=== PATIENT | female | born 1940 | race African-American/Black ===

== ENCOUNTER 2019-03-15 14:32 | Inpatient (IN) ==
[2019-03-15] MEDS ORDERED: LEVOFLOXACIN 750 MG TABLET PO STA (16:22)
[2019-03-15] MEDS ORDERED: methylPREDNISolone SOD SUC 125 MG/2 ML VIAL IV STA (16:22)
[2019-03-15] MEDS ORDERED: ALBUTEROL NEB SOLN 5 MG/ML 20 ML/BOTTLE CONT NEB STA (16:22)
[2019-03-15 17:21] LABS: Apearance,Urine CLOUDY (Clear); Bilirubin,Urine Negative (Negative); Blood, Urine Moderate mg/dL (Negative); Glucose,Urine (UA) Negative (Negative); Ketones,Urine Negative (Negative); Mucus,Urine Occasional /LPF (Occasional); Nitrite,Urine Negative (Negative); Protein,Urine 100 MG/DL; RBC,Urine 26 /HPF (0-4); Squamous Epithelial Cell,Urine Occasional /HPF (0-10); Urine Color Yellow (Yellow); Urine Specific Gravity 1.016 (1.001-1.035); Urine Urobilinogen < 2.0 EU/DL (0.2-1.0); WBC,Urine 222 /HPF (0-6)
[2019-03-15 17:34] LABS: Basophils % 0.4 % (0.0-0.8); Eosinophils # 0.2 10*3/uL (0.0-0.87); Eosinophils % 1.4 % (0.00-10.9); Hematocrit 36.4 VOL% (35.7-47.0); Hemoglobin 10.8 GM/DL (12.0-16.0); Immature Granulocytes % 0.5 %; Immature Granulocytes Absolute 0.06 #; Lymphocytes # 3.2 10*3/uL (1.4-4.0); Lymphocytes % 28.2 % (21.3-54.2); Mean Corpuscular HGB Conc 29.7 GM/DL (32-36); Mean Corpuscular Volume 91.2 FL (87-102); Mean Platelet Volume 12.4 FL (9.6-12.0); Monocytes % 11.5 % (1.7-12.7); Platelet Count 107 T/CUMM (130-400); Red Blood Count 3.99 MC/CUMM (3.8-5.5); White Blood Count 11.2 T/CUMM (4-12)
[2019-03-15 17:48] LABS: Alanine Aminotransferase 33 U/L (13-56); Alkaline Phosphatase 94 U/L (45-117); Aspartate Amino Transferase 28 U/L (0-37); Blood Urea Nitrogen 32 MG/DL (7-18); Calcium 9.6 MG/DL (8.5-10.1); Glucose 195 MG/DL (74-106); Osmolality,Calculated 286.7 MOS/KG (273-304); Total Protein 6.6 G/DL (6.4-8.3); Troponin I < 0.015 NG/ML (0.00-0.045)
[2019-03-15] MEDS ORDERED: DEXTROSE 50% 25 GM/50 ML VIAL IV PRN ×2 (18:07→18:10)
[2019-03-15] MEDS ORDERED: GLUCAGON 1 MG VIAL IM PRN ×2 (18:07→18:10)
[2019-03-15] MEDS ORDERED: guaiFENesin/DM ER 600-30 MG TABLET PO PRN (18:07)
[2019-03-15] MEDS ORDERED: ZALEPLON 5 MG CAPSULE PO PRN (18:07)
[2019-03-15] MEDS ORDERED: ACETAMINOPHEN 325 MG TABLET PO PRN (18:07)
[2019-03-15 18:18] LABS: Polychromasia Few
[2019-03-15 18:19] LABS: Anisocytosis Slight; Hypochromasia 1+; Microcytosis Slight
[2019-03-15 18:20] LABS: Platelet Estimate Decreased
[2019-03-15] MEDS ORDERED: CALCIUM ACETATE 667 MG CAPSULE PO SCH (18:30)
[2019-03-15] MEDS: CALCIUM ACETATE 667 MG CAPSULE PO SCH (21:56)
[2019-03-15] MEDS: HEPARIN 5,000 UNIT/1 ML VIAL SUBCUT SCH (21:56)
[2019-03-15] MEDS: BRIMONIDINE 0.2% OPH SOLN 5 ML BOTTLE BOTH EYES SCH (21:58)
[2019-03-16] MEDS: MEMANTINE 5 MG TABLET PO SCH ×3 (00:04→21:45)
[2019-03-16] MEDS: GABAPENTIN 300 MG CAPSULE PO SCH ×3 (00:04→21:45)
[2019-03-16] MEDS: ATORVASTATIN 40 MG TABLET PO SCH ×2 (00:04→21:45)
[2019-03-16] MEDS: ALBUTEROL 2.5 MG/3 ML NEB RESP TX SCH ×5 (00:45→19:25)
[2019-03-16] MEDS: PANTOPRAZOLE 20 MG TABLET PO SCH ×3 (00:57→23:59)
[2019-03-16] MEDS: HEPARIN 5,000 UNIT/1 ML VIAL SUBCUT SCH ×3 (04:32→22:23)
[2019-03-16 05:36] LABS: Basophils % 0.1 % (0.0-0.8); Hematocrit 33.7 VOL% (35.7-47.0); Immature Granulocytes % 0.4 %; Immature Granulocytes Absolute 0.03 #; Lymphocytes # 0.5 10*3/uL (1.4-4.0); Lymphocytes % 5.9 % (21.3-54.2); Mean Corpuscular HGB Conc 29.7 GM/DL (32-36); Mean Corpuscular Volume 90.3 FL (87-102); Mean Platelet Volume 12.8 FL (9.6-12.0); Monocytes % 3.1 % (1.7-12.7); Neutrophils % 90.5 % (38.7-73.9); Platelet Count 116 T/CUMM (130-400); Red Blood Count 3.73 MC/CUMM (3.8-5.5); Red Cell Distribution Width 15.1 % (9.3-17.3)
[2019-03-16 05:48] LABS: Albumin 2.9 G/DL (3.4-5.0); Bilirubin,Total 0.7 MG/DL (0.2-1.0); Calcium 9.4 MG/DL (8.5-10.1); Osmolality,Calculated 301.4 MOS/KG (273-304); Risk Ratio 3.63; Total Protein 6.7 G/DL (6.4-8.3); VLDL CHOLESTEROL 15.8 MG/DL
[2019-03-16] MEDS: CALCIUM ACETATE 667 MG CAPSULE PO SCH ×3 (06:05→18:25)
[2019-03-16] MEDS: LACTULOSE 20 GM/30 ML UDCUP PO SCH ×2 (06:05→17:27)
[2019-03-16] MEDS: FLUoxetine 20 MG CAPSULE PO SCH (06:05)
[2019-03-16] MEDS: GLIMEPIRIDE 4 MG TABLET PO SCH (06:06)
[2019-03-16] MEDS: MULTIVITAMIN (CENTRUM) TABLET PO SCH (09:46)
[2019-03-16] MEDS: POLYETHYLENE GLYCOL POWDER 17 GM PACK PO SCH (09:46)
[2019-03-16] MEDS: CETIRIZINE 10 MG TABLET PO SCH (09:46)
[2019-03-16] MEDS: ASPIRIN EC 81 MG TABLET PO SCH (09:47)
[2019-03-16] MEDS: CYANOCOBALAMIN 500 MCG TABLET PO SCH (09:47)
[2019-03-16] MEDS: BRIMONIDINE 0.2% OPH SOLN 5 ML BOTTLE BOTH EYES SCH ×2 (09:48→19:47)
[2019-03-16] MEDS: LATANOPROST 0.005% OPH SOLN 2.5 ML BOTTLE BOTH EYES SCH (09:55)
[2019-03-17] MEDS: ALBUTEROL 2.5 MG/3 ML NEB RESP TX SCH ×3 (00:28→13:28)
[2019-03-17] MEDS: HEPARIN 5,000 UNIT/1 ML VIAL SUBCUT SCH ×2 (04:14→14:08)
[2019-03-17 05:55] LABS: Basophils % 0.3 % (0.0-0.8); Eosinophils # 0.2 10*3/uL (0.0-0.87); Eosinophils % 2.7 % (0.00-10.9); Hematocrit 32.2 VOL% (35.7-47.0); Hemoglobin 9.7 GM/DL (12.0-16.0); Immature Granulocytes % 0.2 %; Immature Granulocytes Absolute 0.01 #; Lymphocytes # 1.3 10*3/uL (1.4-4.0); Lymphocytes % 21.3 % (21.3-54.2); Mean Corpuscular HGB Conc 30.1 GM/DL (32-36); Mean Corpuscular Volume 90.2 FL (87-102); Mean Platelet Volume 11.9 FL (9.6-12.0); Monocytes % 13.1 % (1.7-12.7); Neutrophils % 62.4 % (38.7-73.9); Platelet Count 103 T/CUMM (130-400); Red Blood Count 3.57 MC/CUMM (3.8-5.5); Red Cell Distribution Width 14.9 % (9.3-17.3)
[2019-03-17] MEDS: GLIMEPIRIDE 4 MG TABLET PO SCH (06:06)
[2019-03-17] MEDS: CALCIUM ACETATE 667 MG CAPSULE PO SCH ×3 (06:06→18:33)
[2019-03-17] MEDS: FLUoxetine 20 MG CAPSULE PO SCH (06:06)
[2019-03-17] MEDS: ASPIRIN EC 81 MG TABLET PO SCH (08:16)
[2019-03-17] MEDS: CYANOCOBALAMIN 500 MCG TABLET PO SCH (08:16)
[2019-03-17] MEDS: MEMANTINE 5 MG TABLET PO SCH (08:16)
[2019-03-17] MEDS: POLYETHYLENE GLYCOL POWDER 17 GM PACK PO SCH (08:16)
[2019-03-17] MEDS: CETIRIZINE 10 MG TABLET PO SCH (08:16)
[2019-03-17] MEDS: MULTIVITAMIN (CENTRUM) TABLET PO SCH (08:16)
[2019-03-17] MEDS: GABAPENTIN 300 MG CAPSULE PO SCH (08:17)
[2019-03-17] MEDS: BRIMONIDINE 0.2% OPH SOLN 5 ML BOTTLE BOTH EYES SCH (08:17)
[2019-03-17] MEDS: LATANOPROST 0.005% OPH SOLN 2.5 ML BOTTLE BOTH EYES SCH (08:18)
[2019-03-17] MEDS ORDERED: LIDOCAINE/PRILOCAINE CREAM 5 GM TUBE TOP SCH (09:00)
[2019-03-17] MEDS ORDERED: LEVOFLOXACIN INJ 500 MG in PREMIX 1 EACH IV SCH (09:00)
[2019-03-17] MEDS ORDERED: NITROGLYCERIN 0.4 MG/HR PATCH TRANSDERM SCH (09:00)
[2019-03-17 16:31] VITALS: BP 119/61
== END 2019-03-17 19:11 | DRG 689 ==
LOC: EDUNIT# → EDBD → N.ED 14:32 → N.EDINP 18:07 → N.5E 19:14
PROVIDERS: ADMIT Internal Medicine; ATTEND Internal Medicine

== ENCOUNTER 2019-06-25 11:36 | Inpatient (IN) ==
[2019-06-25] MEDS ORDERED: VANCOMYCIN INJ 1,000 MG in SODIUM CHLORIDE 0.9% 250 ML IV STA (12:11)
[2019-06-25] MEDS ORDERED: GLUCAGON 1 MG VIAL IM PRN (12:41)
[2019-06-25] MEDS ORDERED: DEXTROSE 50% 25 GM/50 ML VIAL IV PRN ×2 (12:41→15:40)
[2019-06-25 13:15] LABS: Basophils % 0.3 % (0.0-0.8); Eosinophils # 0.1 10*3/uL (0.0-0.87); Eosinophils % 0.7 % (0.00-10.9); Hematocrit 32.9 VOL% (35.7-47.0); Hemoglobin 9.9 GM/DL (12.0-16.0); Immature Granulocytes % 0.4 %; Immature Granulocytes Absolute 0.03 #; Lymphocytes # 1.4 10*3/uL (1.4-4.0); Mean Corpuscular HGB Conc 30.1 GM/DL (32-36); Mean Corpuscular Volume 88.4 FL (87-102); Mean Platelet Volume 11.8 FL (9.6-12.0); Monocytes % 13.9 % (1.7-12.7); Neutrophils % 66.7 % (38.7-73.9); Platelet Count 114 T/CUMM (130-400); Red Blood Count 3.72 MC/CUMM (3.8-5.5); Red Cell Distribution Width 16.2 % (9.3-17.3); White Blood Count 7.6 T/CUMM (4-12)
[2019-06-25] MEDS ORDERED: DEXTROSE 50% 25 GM/50 ML SYRINGE IV ONE (13:16)
[2019-06-25 13:30] LABS: INR 0.9; PT Patient Result 10.3 SECS (9.6-12.2); Partial Thromboplastin Time 28.3 SECS (20.8-36.0)
[2019-06-25 13:35] LABS: Alanine Aminotransferase 14 U/L (13-56); Albumin 2.9 G/DL (3.4-5.0); Alkaline Phosphatase 74 U/L (45-117); Aspartate Amino Transferase 16 U/L (0-37); Blood Urea Nitrogen 30 MG/DL (7-18); Calcium 9.3 MG/DL (8.5-10.1); Glucose 102 MG/DL (74-106); Osmolality,Calculated 286.3 MOS/KG (273-304); Total Protein 6.4 G/DL (6.4-8.3); Troponin I < 0.015 NG/ML (0.00-0.045)
[2019-06-25] MEDS ORDERED: guaiFENesin/DM ER 600-30 MG TABLET PO PRN (15:37)
[2019-06-25] MEDS ORDERED: ONDANSETRON 4 MG/2 ML VIAL IV PRN (15:37)
[2019-06-25] MEDS ORDERED: diphenhydrAMINE CAP 25 MG CAPSULE PO PRN (15:37)
[2019-06-25] MEDS ORDERED: ACETAMINOPHEN 325 MG TABLET PO PRN (15:37)
[2019-06-25] MEDS ORDERED: NITROGLYCERIN SL 0.4 MG TABLET SL PRN (15:40)
[2019-06-25] MEDS ORDERED: ONDANSETRON 4 MG TABLET PO PRN (15:40)
[2019-06-25] MEDS ORDERED: LACTULOSE 20 GM/30 ML UDCUP PO PRN (15:40)
[2019-06-25] MEDS ORDERED: BENZONATATE 100 MG CAPSULE PO PRN (15:40)
[2019-06-25] MEDS ORDERED: guaiFENesin 200 MG/10 ML UDCUP PO PRN (15:40)
[2019-06-25 16:05] LABS: Risk Ratio 2.75; VLDL CHOLESTEROL 20.2 MG/DL
[2019-06-25] MEDS: CLINDAMYCIN INJ 600 MG in PREMIX 1 EACH IV SCH (16:35)
[2019-06-25] MEDS ORDERED: CRANBERRY 500 MG PO SCH (17:00)
[2019-06-25] MEDS: CALCIUM ACETATE 667 MG CAPSULE PO SCH (17:41)
[2019-06-25] MEDS: HEPARIN 5,000 UNIT/1 ML VIAL SUBCUT SCH (17:56)
[2019-06-25] MEDS: MEMANTINE 10 MG TABLET PO SCH (20:20)
[2019-06-25] MEDS: BRIMONIDINE 0.2% OPH SOLN 5 ML BOTTLE LEFT EYE SCH (20:20)
[2019-06-25] MEDS: ATORVASTATIN 40 MG TABLET PO SCH (20:20)
[2019-06-25] MEDS: GABAPENTIN 600 MG TABLET PO SCH (20:20)
[2019-06-26] MEDS ORDERED: PANTOPRAZOLE 40 MG TABLET PO SCH
[2019-06-26] MEDS: HEPARIN 5,000 UNIT/1 ML VIAL SUBCUT SCH ×3 (01:13→18:56)
[2019-06-26] MEDS: CLINDAMYCIN INJ 600 MG in PREMIX 1 EACH IV SCH ×3 (01:13→18:57)
[2019-06-26 04:57] LABS: Basophils % 0.2 % (0.0-0.8); Eosinophils # 0.1 10*3/uL (0.0-0.87); Eosinophils % 1.7 % (0.00-10.9); Hematocrit 31.1 VOL% (35.7-47.0); Hemoglobin 9.5 GM/DL (12.0-16.0); Immature Granulocytes % 0.3 %; Immature Granulocytes Absolute 0.02 #; Lymphocytes # 1.4 10*3/uL (1.4-4.0); Lymphocytes % 21.2 % (21.3-54.2); Mean Corpuscular HGB Conc 30.5 GM/DL (32-36); Mean Corpuscular Volume 87.4 FL (87-102); Mean Platelet Volume 12.3 FL (9.6-12.0); Monocytes % 16.1 % (1.7-12.7); Neutrophils % 60.5 % (38.7-73.9); Platelet Count 103 T/CUMM (130-400); Red Blood Count 3.56 MC/CUMM (3.8-5.5); White Blood Count 6.5 T/CUMM (4-12)
[2019-06-26 05:21] LABS: Eosinophils 1 % (0-10); Hypochromasia 1+; Lymphocytes 25 % (20-55); Ovalocytes Slight; Platelet Estimate Decreased; Segmented Neutrophils 59 % (50-85); Total Cells Counted 100
[2019-06-26 05:28] LABS: Albumin 2.8 G/DL (3.4-5.0); Bilirubin,Total 0.5 MG/DL (0.2-1.0); Calcium 8.9 MG/DL (8.5-10.1); Osmolality,Calculated 284.4 MOS/KG (273-304); Thyroid Stimulating Hormone 2.69 uIU/ml (0.358-3.74)
[2019-06-26] MEDS: CALCIUM ACETATE 667 MG CAPSULE PO SCH ×3 (06:18→21:58)
[2019-06-26] MEDS: ASPIRIN EC 81 MG TABLET PO SCH (08:18)
[2019-06-26] MEDS: MULTIVITAMIN (CENTRUM) TABLET PO SCH (08:19)
[2019-06-26] MEDS: GABAPENTIN 600 MG TABLET PO SCH ×2 (08:19→21:58)
[2019-06-26] MEDS: CYANOCOBALAMIN 500 MCG TABLET PO SCH (08:19)
[2019-06-26] MEDS: GLIMEPIRIDE 4 MG TABLET PO SCH (08:20)
[2019-06-26] MEDS: PANTOPRAZOLE 40 MG TABLET PO SCH (08:20)
[2019-06-26] MEDS: FLUoxetine 20 MG CAPSULE PO SCH (08:20)
[2019-06-26] MEDS: MEMANTINE 10 MG TABLET PO SCH ×2 (08:20→21:58)
[2019-06-26] MEDS: POLYETHYLENE GLYCOL POWDER 17 GM PACK PO SCH (08:21)
[2019-06-26] MEDS: LATANOPROST 0.005% OPH SOLN 2.5 ML BOTTLE BOTH EYES SCH (08:26)
[2019-06-26] MEDS: BRIMONIDINE 0.2% OPH SOLN 5 ML BOTTLE LEFT EYE SCH ×2 (08:26→21:58)
[2019-06-26] MEDS ORDERED: LIDOCAINE 1% 20 ML VIAL ONE (12:14)
[2019-06-26] MEDS ORDERED: BUPIVACAINE 0.25% /EPI 10 ML VIAL ONE (12:14)
[2019-06-26] MEDS ORDERED: HEPARIN 5,000 UNIT/1 ML VIAL ONE (12:15)
[2019-06-26] MEDS ORDERED: PROPOFOL 200 MG/20 ML VIAL IV ONE (16:28)
[2019-06-26] MEDS ORDERED: MIDAZOLAM 2 MG/2 ML VIAL ONE (16:29)
[2019-06-26] MEDS ORDERED: SODIUM CHLORIDE 0.9% 250 ML IV ONE (16:29)
[2019-06-26] MEDS ORDERED: SODIUM CHLORIDE 0.9% 100 ML IV ONE (16:29)
[2019-06-26] MEDS ORDERED: LABETALOL 20 MG/4 ML SYRINGE IV ONE ×2 (17:33→17:35)
[2019-06-26] MEDS: ATORVASTATIN 40 MG TABLET PO SCH (21:58)
[2019-06-27] MEDS: CLINDAMYCIN INJ 600 MG in PREMIX 1 EACH IV SCH ×3 (00:09→17:13)
[2019-06-27] MEDS: HEPARIN 5,000 UNIT/1 ML VIAL SUBCUT SCH ×3 (00:09→17:18)
[2019-06-27 05:36] LABS: Basophils % 0.3 % (0.0-0.8); Eosinophils # 0.1 10*3/uL (0.0-0.87); Eosinophils % 1.5 % (0.00-10.9); Hematocrit 33.6 VOL% (35.7-47.0); Hemoglobin 10.3 GM/DL (12.0-16.0); Immature Granulocytes % 0.3 %; Immature Granulocytes Absolute 0.02 #; Lymphocytes # 1.6 10*3/uL (1.4-4.0); Lymphocytes % 22.5 % (21.3-54.2); Mean Corpuscular HGB Conc 30.7 GM/DL (32-36); Mean Corpuscular Volume 86.6 FL (87-102); Monocytes % 13.8 % (1.7-12.7); Neutrophils % 61.6 % (38.7-73.9); Platelet Count 108 T/CUMM (130-400); Red Blood Count 3.88 MC/CUMM (3.8-5.5); Red Cell Distribution Width 16.1 % (9.3-17.3); White Blood Count 7.2 T/CUMM (4-12)
[2019-06-27 05:55] LABS: Bilirubin,Total 0.4 MG/DL (0.2-1.0); Calcium 9.1 MG/DL (8.5-10.1); Osmolality,Calculated 281.8 MOS/KG (273-304); Total Protein 6.6 G/DL (6.4-8.3)
[2019-06-27] MEDS: GLIMEPIRIDE 4 MG TABLET PO SCH (06:23)
[2019-06-27] MEDS: POLYETHYLENE GLYCOL POWDER 17 GM PACK PO SCH (08:46)
[2019-06-27] MEDS: ASPIRIN EC 81 MG TABLET PO SCH (08:47)
[2019-06-27] MEDS: GABAPENTIN 600 MG TABLET PO SCH ×2 (08:47→21:51)
[2019-06-27] MEDS: PANTOPRAZOLE 40 MG TABLET PO SCH (08:49)
[2019-06-27] MEDS: LACTULOSE 20 GM/30 ML UDCUP PO SCH ×2 (08:49→21:51)
[2019-06-27] MEDS: CALCIUM ACETATE 667 MG CAPSULE PO SCH ×3 (08:49→16:12)
[2019-06-27] MEDS: CYANOCOBALAMIN 500 MCG TABLET PO SCH (08:49)
[2019-06-27] MEDS: MULTIVITAMIN (CENTRUM) TABLET PO SCH (08:49)
[2019-06-27] MEDS: FLUoxetine 20 MG CAPSULE PO SCH (08:49)
[2019-06-27] MEDS: MEMANTINE 10 MG TABLET PO SCH ×2 (08:49→21:51)
[2019-06-27] MEDS: LATANOPROST 0.005% OPH SOLN 2.5 ML BOTTLE BOTH EYES SCH (08:56)
[2019-06-27] MEDS: BRIMONIDINE 0.2% OPH SOLN 5 ML BOTTLE LEFT EYE SCH (08:56)
[2019-06-27] MEDS: NITROGLYCERIN 0.4 MG/HR PATCH TRANSDERM SCH (09:36)
[2019-06-27] MEDS ORDERED: hydrALAZINE 20 MG/1 ML VIAL IV ONE (10:03)
[2019-06-27] MEDS ORDERED: HEPARIN 10,000 UNIT/10 ML VIAL IV PRN (12:41)
[2019-06-27] MEDS ORDERED: VANCOMYCIN INJ 1,000 MG in SODIUM CHLORIDE 0.9% 250 ML IV ONE ×2 (13:00→14:00)
[2019-06-27] MEDS: ATORVASTATIN 40 MG TABLET PO SCH (21:51)
[2019-06-28] MEDS: BRIMONIDINE 0.2% OPH SOLN 5 ML BOTTLE LEFT EYE SCH ×3 (01:09→20:31)
[2019-06-28] MEDS: CLINDAMYCIN INJ 600 MG in PREMIX 1 EACH IV SCH ×3 (01:12→17:32)
[2019-06-28] MEDS: HEPARIN 5,000 UNIT/1 ML VIAL SUBCUT SCH ×3 (01:15→17:17)
[2019-06-28 05:53] LABS: Basophils % 0.3 % (0.0-0.8); Eosinophils % 0.6 % (0.00-10.9); Hematocrit 29.9 VOL% (35.7-47.0); Hemoglobin 9.5 GM/DL (12.0-16.0); Immature Granulocytes % 0.5 %; Immature Granulocytes Absolute 0.03 #; Lymphocytes # 1.4 10*3/uL (1.4-4.0); Lymphocytes % 22.2 % (21.3-54.2); Mean Corpuscular HGB Conc 31.8 GM/DL (32-36); Mean Corpuscular Volume 85.9 FL (87-102); Mean Platelet Volume 11.8 FL (9.6-12.0); Monocytes % 12.6 % (1.7-12.7); Neutrophils % 63.8 % (38.7-73.9); Platelet Count 101 T/CUMM (130-400); Red Blood Count 3.48 MC/CUMM (3.8-5.5); Red Cell Distribution Width 15.9 % (9.3-17.3); White Blood Count 6.5 T/CUMM (4-12)
[2019-06-28] MEDS: CALCIUM ACETATE 667 MG CAPSULE PO SCH ×3 (06:08→17:17)
[2019-06-28 06:15] LABS: Albumin 2.6 G/DL (3.4-5.0); Bilirubin,Total 0.4 MG/DL (0.2-1.0); Calcium 8.6 MG/DL (8.5-10.1); Osmolality,Calculated 284.4 MOS/KG (273-304); Total Protein 6.2 G/DL (6.4-8.3)
[2019-06-28] MEDS: ASPIRIN EC 81 MG TABLET PO SCH (12:42)
[2019-06-28] MEDS: PANTOPRAZOLE 40 MG TABLET PO SCH (12:43)
[2019-06-28] MEDS: CYANOCOBALAMIN 500 MCG TABLET PO SCH (12:43)
[2019-06-28] MEDS: GABAPENTIN 600 MG TABLET PO SCH ×2 (12:43→20:26)
[2019-06-28] MEDS: MULTIVITAMIN (CENTRUM) TABLET PO SCH (12:43)
[2019-06-28] MEDS: FLUoxetine 20 MG CAPSULE PO SCH (12:43)
[2019-06-28] MEDS: MEMANTINE 10 MG TABLET PO SCH ×2 (12:44→20:31)
[2019-06-28] MEDS: POLYETHYLENE GLYCOL POWDER 17 GM PACK PO SCH (15:15)
[2019-06-28] MEDS: LATANOPROST 0.005% OPH SOLN 2.5 ML BOTTLE BOTH EYES SCH (17:27)
[2019-06-28] MEDS: ATORVASTATIN 40 MG TABLET PO SCH (20:31)
[2019-06-29] MEDS: CLINDAMYCIN INJ 600 MG in PREMIX 1 EACH IV SCH (00:42)
[2019-06-29] MEDS: HEPARIN 5,000 UNIT/1 ML VIAL SUBCUT SCH ×3 (00:42→17:00)
[2019-06-29 05:04] LABS: Basophils % 0.4 % (0.0-0.8); Eosinophils # 0.1 10*3/uL (0.0-0.87); Eosinophils % 1.4 % (0.00-10.9); Hematocrit 30.8 VOL% (35.7-47.0); Hemoglobin 9.5 GM/DL (12.0-16.0); Immature Granulocytes % 0.4 %; Immature Granulocytes Absolute 0.03 #; Lymphocytes # 2.1 10*3/uL (1.4-4.0); Lymphocytes % 30.1 % (21.3-54.2); Mean Corpuscular HGB Conc 30.8 GM/DL (32-36); Mean Corpuscular Volume 86.3 FL (87-102); Mean Platelet Volume 12.5 FL (9.6-12.0); Monocytes % 12.1 % (1.7-12.7); Neutrophils % 55.6 % (38.7-73.9); Platelet Count 127 T/CUMM (130-400); Red Blood Count 3.57 MC/CUMM (3.8-5.5); Red Cell Distribution Width 15.9 % (9.3-17.3); White Blood Count 7.1 T/CUMM (4-12)
[2019-06-29 05:27] LABS: Albumin 2.9 G/DL (3.4-5.0); Calcium 8.9 MG/DL (8.5-10.1); Osmolality,Calculated 276.8 MOS/KG (273-304); Total Protein 6.7 G/DL (6.4-8.3)
[2019-06-29] MEDS: CALCIUM ACETATE 667 MG CAPSULE PO SCH ×3 (06:16→17:00)
[2019-06-29] MEDS: MEMANTINE 10 MG TABLET PO SCH (08:30)
[2019-06-29] MEDS: BRIMONIDINE 0.2% OPH SOLN 5 ML BOTTLE LEFT EYE SCH (08:30)
[2019-06-29] MEDS: LATANOPROST 0.005% OPH SOLN 2.5 ML BOTTLE BOTH EYES SCH (08:31)
[2019-06-29] MEDS: CYANOCOBALAMIN 500 MCG TABLET PO SCH (08:32)
[2019-06-29] MEDS: PANTOPRAZOLE 40 MG TABLET PO SCH (08:32)
[2019-06-29] MEDS: ASPIRIN EC 81 MG TABLET PO SCH (08:32)
[2019-06-29] MEDS: GABAPENTIN 600 MG TABLET PO SCH (08:32)
[2019-06-29] MEDS: MULTIVITAMIN (CENTRUM) TABLET PO SCH (08:32)
[2019-06-29] MEDS: FLUoxetine 20 MG CAPSULE PO SCH (08:32)
[2019-06-29] MEDS: LACTULOSE 20 GM/30 ML UDCUP PO SCH (08:33)
[2019-06-29] MEDS: POLYETHYLENE GLYCOL POWDER 17 GM PACK PO SCH (08:33)
[2019-06-29] MEDS: NITROGLYCERIN 0.4 MG/HR PATCH TRANSDERM SCH (08:43)
[2019-06-29] MEDS: CLINDAMYCIN 300 MG CAPSULE PO SCH ×2 (09:28→17:00)
[2019-06-29 15:59] VITALS: BP 163/76
== END 2019-06-29 18:20 | DRG 252 ==
LOC: EDUNIT# → EDBD → N.ED 11:36 → N.EDINP 15:37 → N.2E 16:03
PROVIDERS: ADMIT Internal Medicine; ATTEND Internal Medicine

== ENCOUNTER 2019-08-07 14:34 | Observation (INO) ==
[2019-08-07 15:19] LABS: Basophils % 0.5 % (0.0-0.8); Eosinophils # 0.1 10*3/uL (0.0-0.87); Eosinophils % 2.3 % (0.00-10.9); Hematocrit 35.4 VOL% (35.7-47.0); Hemoglobin 10.9 GM/DL (12.0-16.0); Immature Granulocytes % 0.3 %; Immature Granulocytes Absolute 0.02 #; Lymphocytes # 1.8 10*3/uL (1.4-4.0); Lymphocytes % 29.3 % (21.3-54.2); Mean Corpuscular HGB Conc 30.8 GM/DL (32-36); Mean Corpuscular Volume 88.3 FL (87-102); Monocytes % 10.5 % (1.7-12.7); Neutrophils % 57.1 % (38.7-73.9); Platelet Count 157 T/CUMM (130-400); Red Blood Count 4.01 MC/CUMM (3.8-5.5); Red Cell Distribution Width 15.9 % (9.3-17.3); White Blood Count 6.1 T/CUMM (4-12)
[2019-08-07 15:23] LABS: PT Patient Result 10.7 SECS (9.6-12.2)
[2019-08-07 15:32] LABS: Alanine Aminotransferase 21 U/L (13-56); Albumin 3.3 G/DL (3.4-5.0); Alkaline Phosphatase 81 U/L (45-117); Aspartate Amino Transferase 24 U/L (0-37); Blood Urea Nitrogen 28 MG/DL (7-18); Calcium 9.2 MG/DL (8.5-10.1); Estimated Glom Filtration Rate 9 ML/MIN; Glucose 65 MG/DL (74-106); Osmolality,Calculated 289.8 MOS/KG (273-304); Troponin I < 0.015 NG/ML (0.00-0.045)
[2019-08-07] MEDS ORDERED: DEXTROSE 50% 25 GM/50 ML SYRINGE IV ONE (18:20)
[2019-08-07] MEDS ORDERED: DEXTROSE 50% 25 GM/50 ML VIAL IV STA (18:26)
[2019-08-07] MEDS ORDERED: ONDANSETRON 4 MG TABLET PO PRN (20:27)
[2019-08-07] MEDS ORDERED: NITROGLYCERIN SL 0.4 MG TABLET SL PRN (20:27)
[2019-08-07] MEDS ORDERED: LACTULOSE 20 GM/30 ML UDCUP PO PRN (20:27)
[2019-08-07] MEDS ORDERED: DEXTROSE 10% 250 ML BAG IV PRN (20:32)
[2019-08-07] MEDS ORDERED: DOCUSATE SODIUM 100 MG CAPSULE PO PRN (20:32)
[2019-08-07] MEDS ORDERED: GLUCAGON 1 MG VIAL IM PRN (20:32)
[2019-08-07] MEDS ORDERED: ACETAMINOPHEN 325 MG TABLET PO PRN (20:32)
[2019-08-07] MEDS: BRIMONIDINE 0.2% OPH SOLN 5 ML BOTTLE LEFT EYE SCH (21:53)
[2019-08-07] MEDS: TICAGRELOR 90 MG TABLET PO SCH (21:53)
[2019-08-07] MEDS: MEMANTINE 10 MG TABLET PO SCH (21:53)
[2019-08-08 06:41] LABS: Calcium 8.3 MG/DL (8.5-10.1)
[2019-08-08] MEDS: CALCIUM ACETATE 667 MG CAPSULE PO SCH ×2 (08:30→12:25)
[2019-08-08] MEDS: BRIMONIDINE 0.2% OPH SOLN 5 ML BOTTLE LEFT EYE SCH (08:30)
[2019-08-08] MEDS: TICAGRELOR 90 MG TABLET PO SCH (08:30)
[2019-08-08] MEDS: MEMANTINE 10 MG TABLET PO SCH (08:30)
[2019-08-08] MEDS ORDERED: POLYETHYLENE GLYCOL POWDER 17 GM PACK PO SCH (09:00)
[2019-08-08] MEDS ORDERED: ASPIRIN EC 81 MG TABLET PO SCH (09:00)
[2019-08-08] MEDS ORDERED: LATANOPROST 0.005% OPH SOLN 2.5 ML BOTTLE BOTH EYES SCH (09:00)
[2019-08-08] MEDS ORDERED: FLUoxetine 20 MG CAPSULE PO SCH (09:00)
[2019-08-08] MEDS ORDERED: GABAPENTIN 600 MG TABLET PO SCH (09:00)
[2019-08-08] MEDS ORDERED: amLODIPine 5 MG TABLET PO SCH (11:00)
[2019-08-08 13:48] VITALS: BP 181/94
== END 2019-08-08 14:06 ==
LOC: EDBD → EDUNIT# → N.EDINP 14:34 → N.ED 14:34 → N.5E 18:44
PROVIDERS: ADMIT Hospitalist; ATTEND Hospitalist

== ENCOUNTER 2019-09-12 01:43 | Inpatient (IN) ==
[2019-09-12] MEDS ORDERED: ACETAMINOPHEN 500 MG TABLET PO STA (02:17)
[2019-09-12 02:24] LABS: Basophils % 0.3 % (0.0-0.8); Eosinophils # 0.1 10*3/uL (0.0-0.87); Eosinophils % 1.5 % (0.00-10.9); Immature Granulocytes % 0.6 %; Immature Granulocytes Absolute 0.06 #; Lymphocytes # 1.2 10*3/uL (1.4-4.0); Lymphocytes % 13.1 % (21.3-54.2); Mean Corpuscular HGB Conc 29.4 GM/DL (32-36); Mean Corpuscular Volume 91.8 FL (87-102); Mean Platelet Volume 12.6 FL (9.6-12.0); Monocytes % 7.7 % (1.7-12.7); NRBC # 0.03 10*3/uL; Neutrophils % 76.8 % (38.7-73.9); Platelet Count 162 T/CUMM (130-400); Red Blood Count 4.26 MC/CUMM (3.8-5.5); Red Cell Distribution Width 15.3 % (9.3-17.3); White Blood Count 9.3 T/CUMM (4-12)
[2019-09-12 02:36] LABS: Albumin 3.4 G/DL (3.4-5.0); Bilirubin,Total 0.4 MG/DL (0.2-1.0); Calcium 8.7 MG/DL (8.5-10.1); Osmolality,Calculated 286.7 MOS/KG (273-304); Total Protein 7.2 G/DL (6.4-8.3)
[2019-09-12 02:37] LABS: Hematocrit 38.8 VOL% (35.7-47.0); Hemoglobin 11.5 GM/DL (12.0-16.0)
[2019-09-12] MEDS ORDERED: cefTRIAXone 1,000 MG in SODIUM CHLORIDE 0.9% 100 ML IV STA (03:06)
[2019-09-12 03:38] LABS: Sedimentation Rate-Westergren 33 MM/HR (0-30)
[2019-09-12] MEDS ORDERED: VANCOMYCIN INJ 1,000 MG in SODIUM CHLORIDE 0.9% 250 ML IV STA ×2 (03:41→04:46)
[2019-09-12] MEDS ORDERED: GLUCAGON 1 MG VIAL IM PRN (04:07)
[2019-09-12] MEDS ORDERED: DEXTROSE 50% 25 GM/50 ML VIAL IV PRN (04:07)
[2019-09-12] MEDS ORDERED: ONDANSETRON 4 MG/2 ML VIAL IV PRN (04:07)
[2019-09-12] MEDS ORDERED: LACTULOSE 320 GM/480 ML BOTTLE PO PRN (04:15)
[2019-09-12] MEDS ORDERED: VANCOMYCIN INJ 500 MG in SODIUM CHLORIDE 0.9% 250 ML IV STA (04:44)
[2019-09-12] MEDS: PIPERACILLIN/TAZOBACTAM 3,375 MG in SODIUM CHLORIDE 0.9% 100 ML IV SCH ×2 (07:05→16:29)
[2019-09-12] MEDS: GLIMEPIRIDE 4 MG TABLET PO SCH (07:10)
[2019-09-12] MEDS: INSULIN REGULAR 100 UNIT/ML SUBCUT SCH ×4 (08:51→21:22)
[2019-09-12] MEDS: POLYETHYLENE GLYCOL POWDER 17 GM PACK PO SCH (08:51)
[2019-09-12] MEDS: FLUoxetine 20 MG CAPSULE PO SCH (08:52)
[2019-09-12] MEDS: ASPIRIN EC 81 MG TABLET PO SCH (08:52)
[2019-09-12] MEDS: CALCIUM ACETATE 667 MG CAPSULE PO SCH ×3 (08:52→16:29)
[2019-09-12] MEDS: CYANOCOBALAMIN 500 MCG TABLET PO SCH (08:52)
[2019-09-12] MEDS: MEMANTINE 10 MG TABLET PO SCH ×2 (08:52→21:22)
[2019-09-12] MEDS: MULTIVITAMIN (BEROCCA) TABLET PO SCH (08:52)
[2019-09-12] MEDS: amLODIPine 5 MG TABLET PO SCH (08:53)
[2019-09-12] MEDS: PANTOPRAZOLE 40 MG TABLET PO SCH (08:53)
[2019-09-12] MEDS: FLUTICASONE 50 MCG NASAL SPRAY 16 GM BOTTLE BOTH NARES SCH (08:53)
[2019-09-12] MEDS ORDERED: VANCOMYCIN INJ 1,000 MG in SODIUM CHLORIDE 0.9% 250 ML IV ONE (10:00)
[2019-09-12] MEDS: HEPARIN 5,000 UNIT/1 ML VIAL SUBCUT SCH ×2 (10:41→21:21)
[2019-09-12] MEDS: LATANOPROST 0.005% OPH SOLN 2.5 ML BOTTLE BOTH EYES SCH (10:42)
[2019-09-12] MEDS: ATORVASTATIN 40 MG TABLET PO SCH (21:21)
[2019-09-12] MEDS: GABAPENTIN 100 MG CAPSULE PO SCH (21:22)
[2019-09-13] MEDS: PIPERACILLIN/TAZOBACTAM 3,375 MG in SODIUM CHLORIDE 0.9% 100 ML IV SCH ×2 (05:00→20:35)
[2019-09-13] MEDS: GLIMEPIRIDE 4 MG TABLET PO SCH (05:28)
[2019-09-13 06:25] LABS: Basophils % 0.4 % (0.0-0.8); Eosinophils # 0.2 10*3/uL (0.0-0.87); Eosinophils % 2.8 % (0.00-10.9); Hematocrit 34.8 VOL% (35.7-47.0); Hemoglobin 10.4 GM/DL (12.0-16.0); Immature Granulocytes % 0.4 %; Immature Granulocytes Absolute 0.03 #; Lymphocytes # 1.7 10*3/uL (1.4-4.0); Lymphocytes % 24.7 % (21.3-54.2); Mean Corpuscular HGB Conc 29.9 GM/DL (32-36); Mean Corpuscular Volume 91.1 FL (87-102); Mean Platelet Volume 12.4 FL (9.6-12.0); Neutrophils % 58.7 % (38.7-73.9); Platelet Count 126 T/CUMM (130-400); Red Blood Count 3.82 MC/CUMM (3.8-5.5); Red Cell Distribution Width 15.3 % (9.3-17.3); White Blood Count 6.7 T/CUMM (4-12)
[2019-09-13 06:54] LABS: Calcium 9.2 MG/DL (8.5-10.1); Osmolality,Calculated 296.6 MOS/KG (273-304)
[2019-09-13] MEDS: INSULIN REGULAR 100 UNIT/ML SUBCUT SCH ×4 (08:17→22:00)
[2019-09-13] MEDS: CALCIUM ACETATE 667 MG CAPSULE PO SCH ×3 (09:20→16:54)
[2019-09-13] MEDS: ASPIRIN EC 81 MG TABLET PO SCH (09:20)
[2019-09-13] MEDS: FLUoxetine 20 MG CAPSULE PO SCH (09:20)
[2019-09-13] MEDS: PANTOPRAZOLE 40 MG TABLET PO SCH (09:21)
[2019-09-13] MEDS: CYANOCOBALAMIN 500 MCG TABLET PO SCH (09:21)
[2019-09-13] MEDS: MEMANTINE 10 MG TABLET PO SCH ×2 (09:21→22:01)
[2019-09-13] MEDS: POLYETHYLENE GLYCOL POWDER 17 GM PACK PO SCH (09:21)
[2019-09-13] MEDS: MULTIVITAMIN (BEROCCA) TABLET PO SCH (09:21)
[2019-09-13] MEDS: HEPARIN 5,000 UNIT/1 ML VIAL SUBCUT SCH ×2 (09:22→22:01)
[2019-09-13] MEDS: FLUTICASONE 50 MCG NASAL SPRAY 16 GM BOTTLE BOTH NARES SCH (09:22)
[2019-09-13] MEDS: LATANOPROST 0.005% OPH SOLN 2.5 ML BOTTLE BOTH EYES SCH (09:22)
[2019-09-13 14:35] LABS: Hepatitis B Surface Ag Quant < 0.10 Index; Hepatitis B Surface Ag Result Negative (Negative)
[2019-09-13] MEDS ORDERED: HEPARIN 10,000 UNIT/10 ML VIAL IV SCH (15:30)
[2019-09-13] MEDS ORDERED: VANCOMYCIN INJ 750 MG in SODIUM CHLORIDE 0.9% 250 ML IV ONE (17:00)
[2019-09-13] MEDS ORDERED: VANCOMYCIN INJ 750 MG in SODIUM CHLORIDE 0.9% 250 ML IV PRN (17:00)
[2019-09-13] MEDS: ACETAMINOPHEN 325 MG TABLET PO PRN (18:05)
[2019-09-13] MEDS: GABAPENTIN 100 MG CAPSULE PO SCH (22:00)
[2019-09-13] MEDS: ATORVASTATIN 40 MG TABLET PO SCH (22:00)
[2019-09-14] MEDS: GLIMEPIRIDE 4 MG TABLET PO SCH (05:53)
[2019-09-14] MEDS: PIPERACILLIN/TAZOBACTAM 3,375 MG in SODIUM CHLORIDE 0.9% 100 ML IV SCH ×2 (05:54→17:23)
[2019-09-14] MEDS: ACETAMINOPHEN 325 MG TABLET PO PRN ×3 (08:35→17:23)
[2019-09-14] MEDS: FLUoxetine 20 MG CAPSULE PO SCH (08:36)
[2019-09-14] MEDS: POLYETHYLENE GLYCOL POWDER 17 GM PACK PO SCH (08:36)
[2019-09-14] MEDS: MEMANTINE 10 MG TABLET PO SCH ×2 (08:37→20:32)
[2019-09-14] MEDS: PANTOPRAZOLE 40 MG TABLET PO SCH (08:37)
[2019-09-14] MEDS: ASPIRIN EC 81 MG TABLET PO SCH (08:37)
[2019-09-14] MEDS: CYANOCOBALAMIN 500 MCG TABLET PO SCH (08:38)
[2019-09-14] MEDS: amLODIPine 5 MG TABLET PO SCH (08:38)
[2019-09-14] MEDS: CALCIUM ACETATE 667 MG CAPSULE PO SCH ×3 (08:39→17:23)
[2019-09-14] MEDS: MULTIVITAMIN (BEROCCA) TABLET PO SCH (08:40)
[2019-09-14] MEDS: HEPARIN 5,000 UNIT/1 ML VIAL SUBCUT SCH ×2 (08:40→20:33)
[2019-09-14] MEDS: INSULIN REGULAR 100 UNIT/ML SUBCUT SCH ×4 (08:43→20:33)
[2019-09-14] MEDS: FLUTICASONE 50 MCG NASAL SPRAY 16 GM BOTTLE BOTH NARES SCH (08:43)
[2019-09-14] MEDS: LATANOPROST 0.005% OPH SOLN 2.5 ML BOTTLE BOTH EYES SCH (08:45)
[2019-09-14] MEDS ORDERED: DEXTROSE 10% 250 ML IV ONE (12:47)
[2019-09-14] MEDS ORDERED: DEXTROSE 10% 250 ML BAG IV PRN (12:49)
[2019-09-14 17:22] LABS: Apearance,Urine CLOUDY (Clear); Bilirubin,Urine Negative (Negative); Blood, Urine Moderate mg/dL (Negative); Glucose,Urine (UA) Negative (Negative); Hyaline Casts,Urine 6 /LPF (0-3); Ketones,Urine Negative (Negative); Nitrite,Urine Negative (Negative); Protein,Urine 100 MG/DL; RBC,Urine 112 /HPF (0-4); Squamous Epithelial Cell,Urine Many /HPF (0-10); Urine Color Amber (Yellow); Urine Specific Gravity 1.019 (1.001-1.035); Urine Urobilinogen < 2.0 EU/DL (0.2-1.0); WBC,Urine 273 /HPF (0-6)
[2019-09-14] MEDS: GABAPENTIN 100 MG CAPSULE PO SCH (20:32)
[2019-09-14] MEDS: ATORVASTATIN 40 MG TABLET PO SCH (20:32)
[2019-09-15] MEDS: PIPERACILLIN/TAZOBACTAM 3,375 MG in SODIUM CHLORIDE 0.9% 100 ML IV SCH ×2 (06:12→19:30)
[2019-09-15] MEDS: INSULIN REGULAR 100 UNIT/ML SUBCUT SCH ×4 (08:35→20:53)
[2019-09-15] MEDS: POLYETHYLENE GLYCOL POWDER 17 GM PACK PO SCH (09:42)
[2019-09-15] MEDS: MEMANTINE 10 MG TABLET PO SCH ×2 (09:42→20:54)
[2019-09-15] MEDS: PANTOPRAZOLE 40 MG TABLET PO SCH (09:42)
[2019-09-15] MEDS: MULTIVITAMIN (BEROCCA) TABLET PO SCH (09:42)
[2019-09-15] MEDS: ASPIRIN EC 81 MG TABLET PO SCH (09:42)
[2019-09-15] MEDS: CALCIUM ACETATE 667 MG CAPSULE PO SCH ×3 (09:42→18:04)
[2019-09-15] MEDS: CYANOCOBALAMIN 500 MCG TABLET PO SCH (09:42)
[2019-09-15] MEDS: FLUoxetine 20 MG CAPSULE PO SCH (09:42)
[2019-09-15] MEDS: HEPARIN 5,000 UNIT/1 ML VIAL SUBCUT SCH ×2 (09:42→20:54)
[2019-09-15] MEDS: FLUTICASONE 50 MCG NASAL SPRAY 16 GM BOTTLE BOTH NARES SCH (09:43)
[2019-09-15] MEDS: LATANOPROST 0.005% OPH SOLN 2.5 ML BOTTLE BOTH EYES SCH (09:43)
[2019-09-15] MEDS ORDERED: VANCOMYCIN INJ 750 MG in SODIUM CHLORIDE 0.9% 250 ML IV ONE (17:00)
[2019-09-15] MEDS: ATORVASTATIN 40 MG TABLET PO SCH (20:54)
[2019-09-15] MEDS: GABAPENTIN 100 MG CAPSULE PO SCH (21:40)
[2019-09-16] MEDS: PIPERACILLIN/TAZOBACTAM 3,375 MG in SODIUM CHLORIDE 0.9% 100 ML IV SCH ×2 (06:16→17:41)
[2019-09-16] MEDS: INSULIN REGULAR 100 UNIT/ML SUBCUT SCH ×4 (07:34→21:56)
[2019-09-16] MEDS: HEPARIN 5,000 UNIT/1 ML VIAL SUBCUT SCH ×2 (09:05→21:55)
[2019-09-16] MEDS: POLYETHYLENE GLYCOL POWDER 17 GM PACK PO SCH (09:05)
[2019-09-16] MEDS: MEMANTINE 10 MG TABLET PO SCH ×2 (09:06→21:56)
[2019-09-16] MEDS: CALCIUM ACETATE 667 MG CAPSULE PO SCH ×3 (09:06→17:13)
[2019-09-16] MEDS: ASPIRIN EC 81 MG TABLET PO SCH (09:06)
[2019-09-16] MEDS: PANTOPRAZOLE 40 MG TABLET PO SCH (09:06)
[2019-09-16] MEDS: FLUoxetine 20 MG CAPSULE PO SCH (09:06)
[2019-09-16] MEDS: amLODIPine 5 MG TABLET PO SCH (09:06)
[2019-09-16] MEDS: MULTIVITAMIN (BEROCCA) TABLET PO SCH (09:06)
[2019-09-16] MEDS: CYANOCOBALAMIN 500 MCG TABLET PO SCH (09:06)
[2019-09-16] MEDS: FLUTICASONE 50 MCG NASAL SPRAY 16 GM BOTTLE BOTH NARES SCH (09:38)
[2019-09-16] MEDS: LATANOPROST 0.005% OPH SOLN 2.5 ML BOTTLE BOTH EYES SCH (09:41)
[2019-09-16] MEDS: ATORVASTATIN 40 MG TABLET PO SCH (21:56)
[2019-09-16] MEDS: GABAPENTIN 100 MG CAPSULE PO SCH (21:56)
[2019-09-17] MEDS: PIPERACILLIN/TAZOBACTAM 3,375 MG in SODIUM CHLORIDE 0.9% 100 ML IV SCH (05:47)
[2019-09-17] MEDS: INSULIN REGULAR 100 UNIT/ML SUBCUT SCH ×4 (07:33→20:53)
[2019-09-17] MEDS: POLYETHYLENE GLYCOL POWDER 17 GM PACK PO SCH (08:57)
[2019-09-17] MEDS: CALCIUM ACETATE 667 MG CAPSULE PO SCH ×3 (08:58→17:01)
[2019-09-17] MEDS: PANTOPRAZOLE 40 MG TABLET PO SCH (08:58)
[2019-09-17] MEDS: HEPARIN 5,000 UNIT/1 ML VIAL SUBCUT SCH ×2 (08:58→20:54)
[2019-09-17] MEDS: ASPIRIN EC 81 MG TABLET PO SCH (08:58)
[2019-09-17] MEDS: MULTIVITAMIN (BEROCCA) TABLET PO SCH (08:58)
[2019-09-17] MEDS: CYANOCOBALAMIN 500 MCG TABLET PO SCH (08:58)
[2019-09-17] MEDS: FLUoxetine 20 MG CAPSULE PO SCH (08:59)
[2019-09-17] MEDS: amLODIPine 5 MG TABLET PO SCH (08:59)
[2019-09-17] MEDS: MEMANTINE 10 MG TABLET PO SCH ×2 (08:59→20:54)
[2019-09-17] MEDS: FLUTICASONE 50 MCG NASAL SPRAY 16 GM BOTTLE BOTH NARES SCH (09:00)
[2019-09-17] MEDS: LATANOPROST 0.005% OPH SOLN 2.5 ML BOTTLE BOTH EYES SCH (09:02)
[2019-09-17] MEDS: ALBUTEROL 2.5 MG/3 ML NEB RESP TX SCH (19:35)
[2019-09-17] MEDS: GABAPENTIN 100 MG CAPSULE PO SCH (20:54)
[2019-09-17] MEDS: ATORVASTATIN 40 MG TABLET PO SCH (20:54)
[2019-09-18] MEDS: ALBUTEROL 2.5 MG/3 ML NEB RESP TX SCH ×4 (00:33→18:40)
[2019-09-18 05:35] LABS: Basophils % 0.4 % (0.0-0.8); Eosinophils # 0.2 10*3/uL (0.0-0.87); Eosinophils % 3.2 % (0.00-10.9); Hematocrit 38.6 VOL% (35.7-47.0); Hemoglobin 11.6 GM/DL (12.0-16.0); Immature Granulocytes % 0.3 %; Immature Granulocytes Absolute 0.02 #; Lymphocytes # 1.3 10*3/uL (1.4-4.0); Lymphocytes % 19.8 % (21.3-54.2); Mean Corpuscular HGB Conc 30.1 GM/DL (32-36); Mean Corpuscular Volume 88.9 FL (87-102); Mean Platelet Volume 11.5 FL (9.6-12.0); Monocytes % 14.9 % (1.7-12.7); Neutrophils % 61.4 % (38.7-73.9); Platelet Count 131 T/CUMM (130-400); Red Blood Count 4.34 MC/CUMM (3.8-5.5); Red Cell Distribution Width 14.9 % (9.3-17.3); White Blood Count 6.8 T/CUMM (4-12)
[2019-09-18 05:59] LABS: Calcium 9.1 MG/DL (8.5-10.1); Osmolality,Calculated 294.3 MOS/KG (273-304)
[2019-09-18] MEDS: INSULIN REGULAR 100 UNIT/ML SUBCUT SCH ×4 (08:00→21:42)
[2019-09-18] MEDS: POLYETHYLENE GLYCOL POWDER 17 GM PACK PO SCH (08:47)
[2019-09-18] MEDS: CYANOCOBALAMIN 500 MCG TABLET PO SCH (08:48)
[2019-09-18] MEDS: ASPIRIN EC 81 MG TABLET PO SCH (08:49)
[2019-09-18] MEDS: CALCIUM ACETATE 667 MG CAPSULE PO SCH ×3 (08:49→17:05)
[2019-09-18] MEDS: MEMANTINE 10 MG TABLET PO SCH ×2 (08:49→21:41)
[2019-09-18] MEDS: FLUoxetine 20 MG CAPSULE PO SCH (08:49)
[2019-09-18] MEDS: HEPARIN 5,000 UNIT/1 ML VIAL SUBCUT SCH ×2 (08:50→21:42)
[2019-09-18] MEDS: PANTOPRAZOLE 40 MG TABLET PO SCH (08:50)
[2019-09-18] MEDS: MULTIVITAMIN (BEROCCA) TABLET PO SCH (08:50)
[2019-09-18] MEDS: FLUTICASONE 50 MCG NASAL SPRAY 16 GM BOTTLE BOTH NARES SCH (09:01)
[2019-09-18] MEDS: LATANOPROST 0.005% OPH SOLN 2.5 ML BOTTLE BOTH EYES SCH (09:01)
[2019-09-18] MEDS ORDERED: VANCOMYCIN INJ 750 MG in SODIUM CHLORIDE 0.9% 250 ML IV ONE (17:00)
[2019-09-18] MEDS: ATORVASTATIN 40 MG TABLET PO SCH (21:41)
[2019-09-18] MEDS: GABAPENTIN 100 MG CAPSULE PO SCH (21:41)
[2019-09-19] MEDS: ALBUTEROL 2.5 MG/3 ML NEB RESP TX SCH ×3 (00:10→13:57)
[2019-09-19] MEDS: INSULIN REGULAR 100 UNIT/ML SUBCUT SCH ×2 (07:27→11:59)
[2019-09-19] MEDS: POLYETHYLENE GLYCOL POWDER 17 GM PACK PO SCH (09:06)
[2019-09-19] MEDS: CALCIUM ACETATE 667 MG CAPSULE PO SCH ×2 (09:06→11:59)
[2019-09-19] MEDS: CYANOCOBALAMIN 500 MCG TABLET PO SCH (09:07)
[2019-09-19] MEDS: MEMANTINE 10 MG TABLET PO SCH (09:08)
[2019-09-19] MEDS: amLODIPine 5 MG TABLET PO SCH (09:08)
[2019-09-19] MEDS: FLUoxetine 20 MG CAPSULE PO SCH (09:08)
[2019-09-19] MEDS: FLUTICASONE 50 MCG NASAL SPRAY 16 GM BOTTLE BOTH NARES SCH (09:09)
[2019-09-19] MEDS: HEPARIN 5,000 UNIT/1 ML VIAL SUBCUT SCH (09:09)
[2019-09-19] MEDS: MULTIVITAMIN (BEROCCA) TABLET PO SCH (09:09)
[2019-09-19] MEDS: ASPIRIN EC 81 MG TABLET PO SCH (09:09)
[2019-09-19] MEDS: PANTOPRAZOLE 40 MG TABLET PO SCH (09:10)
[2019-09-19] MEDS: LATANOPROST 0.005% OPH SOLN 2.5 ML BOTTLE BOTH EYES SCH (09:57)
[2019-09-19 11:45] VITALS: BP 141/50
[2019-09-19] MEDS ORDERED: MONTELUKAST 10 MG TABLET PO SCH (21:00)
== END 2019-09-19 15:03 | DRG 871 ==
LOC: N.ED 01:43 → SUATTDRO 04:07 → N.EDINP 04:07 → N.5E 04:56
PROVIDERS: ADMIT Internal Medicine; ATTEND Internal Medicine

== ENCOUNTER 2019-11-13 19:24 | Inpatient (IN) ==
[2019-11-13] MEDS ORDERED: ASPIRIN 325 MG TABLET PO STA (19:54)
[2019-11-13] MEDS ORDERED: NITROGLYCERIN SL 0.4 MG TABLET SL PRN (19:54)
[2019-11-13 20:11] LABS: Basophils % 0.7 % (0.0-0.8); Eosinophils # 0.1 10*3/uL (0.0-0.87); Eosinophils % 2.2 % (0.00-10.9); Hemoglobin 10.5 GM/DL (12.0-16.0); Immature Granulocytes % 0.4 %; Immature Granulocytes Absolute 0.02 #; Lymphocytes # 1.5 10*3/uL (1.4-4.0); Lymphocytes % 27.8 % (21.3-54.2); Mean Corpuscular HGB Conc 30.9 GM/DL (32-36); Mean Corpuscular Volume 86.5 FL (87-102); Mean Platelet Volume 12.8 FL (9.6-12.0); Monocytes % 11.2 % (1.7-12.7); Neutrophils % 57.7 % (38.7-73.9); Platelet Count 185 T/CUMM (130-400); Red Blood Count 3.93 MC/CUMM (3.8-5.5); White Blood Count 5.5 T/CUMM (4-12)
[2019-11-13 20:26] LABS: PT Patient Result 10.8 SECS (9.6-12.2)
[2019-11-13 20:35] LABS: Albumin 3.1 G/DL (3.4-5.0); Bilirubin,Total 0.8 MG/DL (0.2-1.0); Calcium 8.6 MG/DL (8.5-10.1); Osmolality,Calculated 276.5 MOS/KG (273-304); Total Protein 6.6 G/DL (6.4-8.3)
[2019-11-13] MEDS ORDERED: LEVOFLOXACIN INJ 500 MG in PREMIX 1 EACH IV STA (20:36)
[2019-11-14] MEDS ORDERED: LEVOFLOXACIN INJ 750 MG in PREMIX 1 EACH IV SCH (01:04)
[2019-11-14] MEDS ORDERED: ACETAMINOPHEN 325 MG TABLET PO PRN (01:04)
[2019-11-14] MEDS ORDERED: ALBUTEROL 2.5 MG/3 ML NEB RESP TX PRN (01:04)
[2019-11-14] MEDS ORDERED: GLUCAGON 1 MG VIAL IM PRN (01:04)
[2019-11-14] MEDS ORDERED: DEXTROSE 50% 25 GM/50 ML SYRINGE IV PRN (01:04)
[2019-11-14] MEDS ORDERED: ONDANSETRON 4 MG/2 ML VIAL IV PRN (01:04)
[2019-11-14] MEDS ORDERED: PIPERACILLIN/TAZOBACTAM 3,375 MG in SODIUM CHLORIDE 0.9% 100 ML IV SCH (01:30)
[2019-11-14 02:22] LABS: Basophils % 0.6 % (0.0-0.8); Eosinophils # 0.1 10*3/uL (0.0-0.87); Eosinophils % 2.3 % (0.00-10.9); Hematocrit 32.3 VOL% (35.7-47.0); Hemoglobin 9.9 GM/DL (12.0-16.0); Immature Granulocytes % 0.2 %; Immature Granulocytes Absolute 0.01 #; Lymphocytes # 1.3 10*3/uL (1.4-4.0); Lymphocytes % 27.9 % (21.3-54.2); Mean Corpuscular HGB Conc 30.7 GM/DL (32-36); Mean Corpuscular Volume 86.8 FL (87-102); Monocytes % 13.4 % (1.7-12.7); Neutrophils % 55.6 % (38.7-73.9); Platelet Count 115 T/CUMM (130-400); Red Blood Count 3.72 MC/CUMM (3.8-5.5); Red Cell Distribution Width 17.1 % (9.3-17.3); White Blood Count 4.8 T/CUMM (4-12)
[2019-11-14 02:51] LABS: Calcium 8.6 MG/DL (8.5-10.1); Osmolality,Calculated 276.4 MOS/KG (273-304)
[2019-11-14] MEDS: ALBUTEROL/IPRATROPIUM 3 ML NEB RESP TX SCH ×2 (03:00→07:10)
[2019-11-14] MEDS ORDERED: POTASSIUM CHLORIDE 20 MEQ TABLET PO ONE (10:13)
[2019-11-14] MEDS ORDERED: AMOXICILLIN/CLAV 875 MG TABLET PO SCH (10:30)
[2019-11-14] MEDS ORDERED: LACTULOSE 20 GM/30 ML UDCUP PO PRN (10:38)
[2019-11-14 11:22] VITALS: BP 152/81
[2019-11-15] MEDS ORDERED: LEVOFLOXACIN INJ 100 ML IV SCH (21:00)
== END 2019-11-14 12:25 | DRG 193 ==
LOC: EDUNIT# → EDBD → N.ED 19:24 → N.EDINP 23:00 → N.3E 23:22
PROVIDERS: ADMIT Family Medicine; ATTEND Family Medicine

== ENCOUNTER 2020-04-10 13:30 | Inpatient (IN) ==
[2020-04-10 15:30] LABS: Basophils % 0.4 % (0.0-0.8); Eosinophils % 0.4 % (0.00-10.9); Hematocrit 37.5 VOL% (35.7-47.0); Hemoglobin 11.3 GM/DL (12.0-16.0); Immature Granulocytes % 0.3 %; Immature Granulocytes Absolute 0.02 #; Lymphocytes # 1.4 10*3/uL (1.4-4.0); Lymphocytes % 21.1 % (21.3-54.2); Mean Corpuscular HGB Conc 30.1 GM/DL (32-36); Mean Corpuscular Volume 91.5 FL (87-102); Mean Platelet Volume 12.1 FL (9.6-12.0); Monocytes % 14.8 % (1.7-12.7); Platelet Count 136 T/CUMM (130-400); Red Cell Distribution Width 16.3 % (9.3-17.3); White Blood Count 6.7 T/CUMM (4-12)
[2020-04-10 15:50] LABS: Albumin 3.2 G/DL (3.4-5.0); Bilirubin,Total 0.7 MG/DL (0.2-1.0); Calcium 8.5 MG/DL (8.5-10.1); Osmolality,Calculated 288.5 MOS/KG (273-304); Total Protein 6.6 G/DL (6.4-8.3)
[2020-04-10 16:04] LABS: PT Patient Result 10.9 SECS (9.8-11.9); Partial Thromboplastin Time 25.3 SECS (23.9-33.8)
[2020-04-10] MEDS ORDERED: DEXTROSE 10% 250 ML BAG IV PRN (17:23)
[2020-04-10] MEDS ORDERED: hydrALAZINE 20 MG/1 ML VIAL IV PRN (17:23)
[2020-04-10] MEDS ORDERED: GLUCAGON 1 MG VIAL IM PRN ×2 (17:23→18:23)
[2020-04-10] MEDS ORDERED: ONDANSETRON 4 MG/2 ML VIAL IV PRN (17:23)
[2020-04-10] MEDS ORDERED: DEXTROSE 50% 25 GM/50 ML VIAL IV PRN (18:23)
[2020-04-10] MEDS: cefTRIAXone 1,000 MG in SYRINGE 1 EACH IV SCH (19:36)
[2020-04-10] MEDS: AZITHROMYCIN INJ 500 MG in SODIUM CHLORIDE 0.9% 250 ML IV SCH (19:51)
[2020-04-10] MEDS ORDERED: ENOXAPARIN 30 MG/0.3 ML SYRINGE SUBCUT SCH (21:00)
[2020-04-10] MEDS: HEPARIN 5,000 UNIT/1 ML VIAL SUBCUT SCH (21:44)
[2020-04-10] MEDS: ACETAMINOPHEN 325 MG TABLET PO PRN (21:45)
[2020-04-11 02:58] LABS: Basophils % 0.6 % (0.0-0.8); Eosinophils % 0.2 % (0.00-10.9); Hematocrit 35.6 VOL% (35.7-47.0); Hemoglobin 10.9 GM/DL (12.0-16.0); Immature Granulocytes % 0.6 %; Immature Granulocytes Absolute 0.03 #; Lymphocytes # 0.9 10*3/uL (1.4-4.0); Lymphocytes % 17.4 % (21.3-54.2); Mean Corpuscular HGB Conc 30.6 GM/DL (32-36); Mean Corpuscular Volume 90.4 FL (87-102); Mean Platelet Volume 12.9 FL (9.6-12.0); Neutrophils % 66.2 % (38.7-73.9); Platelet Count 116 T/CUMM (130-400); Red Blood Count 3.94 MC/CUMM (3.8-5.5); Red Cell Distribution Width 16.3 % (9.3-17.3); White Blood Count 5.1 T/CUMM (4-12)
[2020-04-11 03:28] LABS: Calcium 8.2 MG/DL (8.5-10.1); Osmolality,Calculated 297.4 MOS/KG (273-304)
[2020-04-11 03:33] LABS: Ferritin 1146.5 ng/ml (8-252)
[2020-04-11] MEDS: HEPARIN 5,000 UNIT/1 ML VIAL SUBCUT SCH ×3 (06:04→22:34)
[2020-04-11] MEDS ORDERED: DEXTROSE 50% 25 GM/50 ML VIAL IV PRN (08:01)
[2020-04-11] MEDS ORDERED: GLUCAGON 1 MG VIAL IM PRN (08:01)
[2020-04-11] MEDS ORDERED: ONDANSETRON 4 MG TABLET PO PRN (08:58)
[2020-04-11] MEDS ORDERED: BENZONATATE 100 MG CAPSULE PO PRN (08:58)
[2020-04-11] MEDS ORDERED: NITROGLYCERIN SL 0.4 MG TABLET SL PRN (08:58)
[2020-04-11] MEDS ORDERED: LACTULOSE 320 GM/480 ML BOTTLE PO SCH (09:00)
[2020-04-11] MEDS ORDERED: NON-FORMULARY MEDICATION (Cranberry 500 MG) PO SCH (09:00)
[2020-04-11] MEDS ORDERED: LACTULOSE 20 GM/30 ML UDCUP PO PRN (09:07)
[2020-04-11] MEDS: cefTRIAXone 1,000 MG in SYRINGE 1 EACH IV SCH (09:42)
[2020-04-11] MEDS: ACETAMINOPHEN 325 MG TABLET PO PRN ×2 (09:45→20:55)
[2020-04-11] MEDS: AZITHROMYCIN INJ 500 MG in SODIUM CHLORIDE 0.9% 250 ML IV SCH (09:46)
[2020-04-11] MEDS: GABAPENTIN 100 MG CAPSULE PO SCH (13:04)
[2020-04-11] MEDS: amLODIPine 5 MG TABLET PO SCH (13:04)
[2020-04-11] MEDS: CALCIUM ACETATE 667 MG CAPSULE PO SCH ×2 (13:04→16:55)
[2020-04-11] MEDS: INSULIN LISPRO 100 UNIT/ML SUBCUT SCH ×2 (16:56→20:56)
[2020-04-11] MEDS: ATORVASTATIN 40 MG TABLET PO SCH (20:54)
[2020-04-11] MEDS: GABAPENTIN 300 MG CAPSULE PO SCH (20:55)
[2020-04-11] MEDS: MEMANTINE 10 MG TABLET PO SCH (20:55)
[2020-04-11] MEDS: BRIMONIDINE 0.2% OPH SOLN 5 ML BOTTLE LEFT EYE SCH (20:56)
[2020-04-11] MEDS: ALBUTEROL INHALER 18 GM INH SCH (20:56)
[2020-04-11] MEDS: LATANOPROST 0.005% OPH SOLN 2.5 ML BOTTLE BOTH EYES SCH (22:35)
[2020-04-12 05:20] LABS: Basophils % 0.4 % (0.0-0.8); Eosinophils % 0.2 % (0.00-10.9); Hematocrit 37.6 VOL% (35.7-47.0); Hemoglobin 11.3 GM/DL (12.0-16.0); Immature Granulocytes % 0.4 %; Immature Granulocytes Absolute 0.02 #; Lymphocytes # 0.9 10*3/uL (1.4-4.0); Lymphocytes % 18.3 % (21.3-54.2); Mean Corpuscular HGB Conc 30.1 GM/DL (32-36); Mean Corpuscular Volume 90.8 FL (87-102); Mean Platelet Volume 12.8 FL (9.6-12.0); Monocytes % 14.6 % (1.7-12.7); Neutrophils % 66.1 % (38.7-73.9); Red Blood Count 4.14 MC/CUMM (3.8-5.5); Red Cell Distribution Width 16.2 % (9.3-17.3); White Blood Count 4.9 T/CUMM (4-12)
[2020-04-12 05:22] LABS: Platelet Count 108 T/CUMM (130-400)
[2020-04-12 05:41] LABS: Ferritin 1421.3 ng/ml (8-252)
[2020-04-12 05:51] LABS: Calcium 8.1 MG/DL (8.5-10.1)
[2020-04-12] MEDS: HEPARIN 5,000 UNIT/1 ML VIAL SUBCUT SCH ×3 (06:10→22:35)
[2020-04-12] MEDS: INSULIN LISPRO 100 UNIT/ML SUBCUT SCH ×5 (09:04→20:39)
[2020-04-12] MEDS: CALCIUM ACETATE 667 MG CAPSULE PO SCH ×3 (09:09→18:13)
[2020-04-12] MEDS: AZITHROMYCIN 250 MG TABLET PO SCH (09:10)
[2020-04-12] MEDS: GABAPENTIN 100 MG CAPSULE PO SCH (09:10)
[2020-04-12] MEDS: MULTIVITAMIN (CENTRUM) TABLET PO SCH (09:10)
[2020-04-12] MEDS: FEXOFENADINE 60 MG TABLET PO SCH (09:10)
[2020-04-12] MEDS: ACETAMINOPHEN 325 MG TABLET PO PRN ×2 (09:10→16:26)
[2020-04-12] MEDS: cefTRIAXone 1,000 MG in SYRINGE 1 EACH IV SCH (09:11)
[2020-04-12] MEDS: POLYETHYLENE GLYCOL POWDER 17 GM PACK PO SCH (09:11)
[2020-04-12] MEDS: ALBUTEROL INHALER 18 GM INH SCH ×2 (09:11→20:41)
[2020-04-12] MEDS: CYANOCOBALAMIN 500 MCG TABLET PO SCH (09:11)
[2020-04-12] MEDS: FLUTICASONE 50 MCG NASAL SPRAY 16 GM BOTTLE BOTH NARES SCH (09:11)
[2020-04-12] MEDS: MEMANTINE 10 MG TABLET PO SCH ×2 (09:11→20:40)
[2020-04-12] MEDS: FLUoxetine 20 MG CAPSULE PO SCH (09:11)
[2020-04-12] MEDS: ASPIRIN CHEW 81 MG TABLET PO SCH (09:11)
[2020-04-12] MEDS: BRIMONIDINE 0.2% OPH SOLN 5 ML BOTTLE LEFT EYE SCH ×2 (09:13→20:15)
[2020-04-12] MEDS: LATANOPROST 0.005% OPH SOLN 2.5 ML BOTTLE BOTH EYES SCH ×2 (16:24→20:15)
[2020-04-12] MEDS: ATORVASTATIN 40 MG TABLET PO SCH (20:40)
[2020-04-12] MEDS: GABAPENTIN 300 MG CAPSULE PO SCH (20:41)
[2020-04-12] MEDS: CYPROHEPTADINE 4 MG TABLET PO SCH (20:41)
[2020-04-13 05:39] LABS: Basophils % 0.2 % (0.0-0.8); Hematocrit 38.8 VOL% (35.7-47.0); Hemoglobin 11.9 GM/DL (12.0-16.0); Immature Granulocytes % 0.4 %; Immature Granulocytes Absolute 0.02 #; Lymphocytes % 19.8 % (21.3-54.2); Mean Corpuscular HGB Conc 30.7 GM/DL (32-36); Neutrophils % 65.6 % (38.7-73.9); Platelet Count 101 T/CUMM (130-400); Red Blood Count 4.31 MC/CUMM (3.8-5.5); Red Cell Distribution Width 15.9 % (9.3-17.3); White Blood Count 5.2 T/CUMM (4-12)
[2020-04-13] MEDS: HEPARIN 5,000 UNIT/1 ML VIAL SUBCUT SCH ×3 (06:10→21:24)
[2020-04-13] MEDS: ACETAMINOPHEN 325 MG TABLET PO PRN (06:24)
[2020-04-13 06:56] LABS: Calcium 8.3 MG/DL (8.5-10.1); Osmolality,Calculated 276.4 MOS/KG (273-304)
[2020-04-13] MEDS: INSULIN LISPRO 100 UNIT/ML SUBCUT SCH ×4 (08:27→21:14)
[2020-04-13] MEDS: FLUTICASONE 50 MCG NASAL SPRAY 16 GM BOTTLE BOTH NARES SCH (08:35)
[2020-04-13] MEDS: POLYETHYLENE GLYCOL POWDER 17 GM PACK PO SCH (08:35)
[2020-04-13] MEDS: cefTRIAXone 1,000 MG in SYRINGE 1 EACH IV SCH (08:35)
[2020-04-13] MEDS: CYANOCOBALAMIN 500 MCG TABLET PO SCH (08:36)
[2020-04-13] MEDS: CYPROHEPTADINE 4 MG TABLET PO SCH ×2 (08:36→21:13)
[2020-04-13] MEDS: CALCIUM ACETATE 667 MG CAPSULE PO SCH ×3 (08:36→17:12)
[2020-04-13] MEDS: MULTIVITAMIN (CENTRUM) TABLET PO SCH (08:36)
[2020-04-13] MEDS: FEXOFENADINE 60 MG TABLET PO SCH (08:36)
[2020-04-13] MEDS: LATANOPROST 0.005% OPH SOLN 2.5 ML BOTTLE BOTH EYES SCH ×2 (08:36→21:00)
[2020-04-13] MEDS: AZITHROMYCIN 250 MG TABLET PO SCH (08:37)
[2020-04-13] MEDS: GABAPENTIN 100 MG CAPSULE PO SCH (08:37)
[2020-04-13] MEDS: ASPIRIN CHEW 81 MG TABLET PO SCH (08:37)
[2020-04-13] MEDS: FLUoxetine 20 MG CAPSULE PO SCH (08:37)
[2020-04-13] MEDS: MEMANTINE 10 MG TABLET PO SCH ×2 (08:37→21:13)
[2020-04-13] MEDS: amLODIPine 5 MG TABLET PO SCH (08:37)
[2020-04-13] MEDS ORDERED: ACETAMINOPHEN 325 MG TABLET PO PRN (08:39)
[2020-04-13 08:47] LABS: Hypochromasia 1+; Microcytosis Slight; Platelet Estimate Decreased
[2020-04-13] MEDS: BRIMONIDINE 0.2% OPH SOLN 5 ML BOTTLE LEFT EYE SCH ×2 (09:17→21:01)
[2020-04-13] MEDS: ALBUTEROL INHALER 18 GM INH SCH ×2 (10:49→21:14)
[2020-04-13] MEDS: ACETAMINOPHEN 650 MG SUPP RECTAL PRN (21:02)
[2020-04-13] MEDS: GABAPENTIN 300 MG CAPSULE PO SCH (21:11)
[2020-04-13] MEDS: ATORVASTATIN 40 MG TABLET PO SCH (21:14)
[2020-04-14] MEDS: ACETAMINOPHEN 650 MG SUPP RECTAL PRN (00:45)
[2020-04-14] MEDS: HEPARIN 5,000 UNIT/1 ML VIAL SUBCUT SCH (05:53)
[2020-04-14 06:16] LABS: Ferritin 2938.7 ng/ml (8-252)
[2020-04-14 06:38] LABS: Calcium 8.4 MG/DL (8.5-10.1); Osmolality,Calculated 289.1 MOS/KG (273-304)
[2020-04-14] MEDS: amLODIPine 5 MG TABLET PO SCH (08:55)
[2020-04-14] MEDS: CALCIUM ACETATE 667 MG CAPSULE PO SCH ×2 (08:55→13:35)
[2020-04-14] MEDS: CYANOCOBALAMIN 500 MCG TABLET PO SCH (08:55)
[2020-04-14] MEDS: FLUoxetine 20 MG CAPSULE PO SCH (08:55)
[2020-04-14] MEDS: MULTIVITAMIN (CENTRUM) TABLET PO SCH (08:55)
[2020-04-14] MEDS: AZITHROMYCIN 250 MG TABLET PO SCH (08:55)
[2020-04-14] MEDS: GABAPENTIN 100 MG CAPSULE PO SCH (08:55)
[2020-04-14] MEDS: FEXOFENADINE 60 MG TABLET PO SCH (08:56)
[2020-04-14] MEDS: INSULIN LISPRO 100 UNIT/ML SUBCUT SCH ×2 (08:56→12:35)
[2020-04-14] MEDS: MEMANTINE 10 MG TABLET PO SCH (08:56)
[2020-04-14] MEDS: BRIMONIDINE 0.2% OPH SOLN 5 ML BOTTLE LEFT EYE SCH (08:56)
[2020-04-14] MEDS: ASPIRIN CHEW 81 MG TABLET PO SCH (08:56)
[2020-04-14] MEDS: FLUTICASONE 50 MCG NASAL SPRAY 16 GM BOTTLE BOTH NARES SCH (08:56)
[2020-04-14] MEDS: cefTRIAXone 1,000 MG in SYRINGE 1 EACH IV SCH (08:56)
[2020-04-14] MEDS: LATANOPROST 0.005% OPH SOLN 2.5 ML BOTTLE BOTH EYES SCH (08:57)
[2020-04-14] MEDS: POLYETHYLENE GLYCOL POWDER 17 GM PACK PO SCH (09:28)
[2020-04-14 10:48] LABS: Basophils % 0.7 % (0.0-0.8); Eosinophils % 0.7 % (0.00-10.9); Hematocrit 40.2 VOL% (35.7-47.0); Hemoglobin 12.4 GM/DL (12.0-16.0); Immature Granulocytes % 0.2 %; Immature Granulocytes Absolute 0.01 #; Lymphocytes # 1.1 10*3/uL (1.4-4.0); Lymphocytes % 26.9 % (21.3-54.2); Mean Corpuscular HGB Conc 30.8 GM/DL (32-36); Mean Corpuscular Volume 89.5 FL (87-102); Monocytes % 13.8 % (1.7-12.7); Neutrophils % 57.7 % (38.7-73.9); Red Blood Count 4.49 MC/CUMM (3.8-5.5); White Blood Count 4.2 T/CUMM (4-12)
[2020-04-14 10:54] LABS: Platelet Count 88 T/CUMM (130-400)
[2020-04-14 11:34] LABS: Anisocytosis 1+; Hypochromasia 1+; Ovalocytes Slight
[2020-04-14 12:10] VITALS: BP 136/53
[2020-04-14] MEDS: CYPROHEPTADINE 4 MG TABLET PO SCH (12:22)
[2020-04-14] MEDS: ALBUTEROL INHALER 18 GM INH SCH (14:23)
== END 2020-04-14 13:49 | DRG 177 ==
LOC: EDUNIT# → EDBD → N.ED 13:30 → N.EDINP 18:23 → N.2E 19:47
PROVIDERS: ADMIT Hospitalist; ATTEND Hospitalist

== ENCOUNTER 2020-04-16 17:40 | Inpatient (IN) ==
[2020-04-16] MEDS ORDERED: AZITHROMYCIN INJ 500 MG in SODIUM CHLORIDE 0.9% 250 ML IV STA (18:02)
[2020-04-16] MEDS ORDERED: VANCOMYCIN INJ 1,000 MG in SODIUM CHLORIDE 0.9% 250 ML IV STA (18:02)
[2020-04-16 18:21] LABS: Basophils % 0.1 % (0.0-0.8); Hematocrit 39.2 VOL% (35.7-47.0); Hemoglobin 12.2 GM/DL (12.0-16.0); Immature Granulocytes % 0.5 %; Immature Granulocytes Absolute 0.05 #; Lymphocytes # 0.6 10*3/uL (1.4-4.0); Lymphocytes % 5.8 % (21.3-54.2); Mean Corpuscular HGB Conc 31.1 GM/DL (32-36); Mean Corpuscular Volume 87.3 FL (87-102); Mean Platelet Volume 13.4 FL (9.6-12.0); Neutrophils % 86.6 % (38.7-73.9); Platelet Count 102 T/CUMM (130-400); Red Blood Count 4.49 MC/CUMM (3.8-5.5); Red Cell Distribution Width 15.7 % (9.3-17.3); White Blood Count 9.4 T/CUMM (4-12)
[2020-04-16 18:45] LABS: Apearance,Urine CLEAR (Clear); Bilirubin,Urine Negative (Negative); Blood, Urine Moderate mg/dL (Negative); Glucose,Urine (UA) Negative (Negative); Ketones,Urine Negative (Negative); Nitrite,Urine Negative (Negative); Protein,Urine 100 MG/DL; RBC,Urine 7 /HPF (0-4); Urine Color Amber (Yellow); Urine Specific Gravity 1.015 (1.001-1.035); Urine Urobilinogen < 2.0 EU/DL (0.2-1.0); WBC,Urine 7 /HPF (0-6)
[2020-04-16 18:45] LABS: Alanine Aminotransferase 27 U/L (13-56); Albumin 2.3 G/DL (3.4-5.0); Alkaline Phosphatase 63 U/L (45-117); Aspartate Amino Transferase 65 U/L (0-37); Blood Urea Nitrogen 39 MG/DL (7-18); Calcium 8.6 MG/DL (8.5-10.1); Estimated Glom Filtration Rate 9 ML/MIN; Ferritin 7856.9 ng/ml (8-252); Glucose 189 MG/DL (74-106); Osmolality,Calculated 281.2 MOS/KG (273-304)
[2020-04-16 18:48] LABS: Barbiturates Screen,Urine Negative (Negative); Benzodiazepines Screen,Urine Negative (Negative); Cannabinoid Screen,Urine Negative (Negative); Opiate Screen,Urine Positive (Negative); Phencyclidine Screen,Urine Negative (Negative)
[2020-04-16 18:51] LABS: Troponin I 0.216 NG/ML (0.00-0.045)
[2020-04-16 18:52] LABS: INR 1.1; PT Patient Result 11.3 SECS (9.8-11.9)
[2020-04-16] MEDS ORDERED: DEXTROSE 10% 250 ML BAG IV PRN (19:41)
[2020-04-16] MEDS ORDERED: GLUCAGON 1 MG VIAL IM PRN (19:41)
[2020-04-16] MEDS ORDERED: ONDANSETRON 4 MG/2 ML VIAL IV PRN (19:41)
[2020-04-16] MEDS ORDERED: ACETAMINOPHEN 650 MG SUPP RECTAL STA (20:31)
[2020-04-16] MEDS ORDERED: BRIMONIDINE 0.2% OPH SOLN 5 ML BOTTLE LEFT EYE SCH (21:00)
[2020-04-16] MEDS: INSULIN REGULAR 100 UNIT/ML SUBCUT SCH (21:45)
[2020-04-16] MEDS: MEMANTINE 10 MG TABLET PO SCH (22:02)
[2020-04-16] MEDS: CALCIUM ACETATE 667 MG CAPSULE PO SCH (22:02)
[2020-04-17] MEDS: CALCIUM ACETATE 667 MG CAPSULE PO SCH ×4 (05:20→16:50)
[2020-04-17 06:18] LABS: Hematocrit 35.6 VOL% (35.7-47.0); Hemoglobin 11.1 GM/DL (12.0-16.0); Immature Granulocytes % 0.3 %; Immature Granulocytes Absolute 0.02 #; Lymphocytes # 0.8 10*3/uL (1.4-4.0); Lymphocytes % 13.7 % (21.3-54.2); Mean Corpuscular HGB Conc 31.2 GM/DL (32-36); Mean Corpuscular Volume 88.3 FL (87-102); Mean Platelet Volume 13.5 FL (9.6-12.0); Monocytes % 7.5 % (1.7-12.7); Neutrophils % 78.5 % (38.7-73.9); Red Blood Count 4.03 MC/CUMM (3.8-5.5); Red Cell Distribution Width 15.8 % (9.3-17.3); White Blood Count 5.8 T/CUMM (4-12)
[2020-04-17 06:28] LABS: Platelet Count 89 T/CUMM (130-400)
[2020-04-17 06:36] LABS: Calcium 8.2 MG/DL (8.5-10.1); Osmolality,Calculated 291.1 MOS/KG (273-304)
[2020-04-17 06:41] LABS: Hypochromasia 1+; Microcytosis 1+
[2020-04-17 06:42] LABS: Ovalocytes Slight; Platelet Estimate Decreased
[2020-04-17] MEDS: INSULIN REGULAR 100 UNIT/ML SUBCUT SCH ×4 (08:53→20:17)
[2020-04-17] MEDS: MEMANTINE 10 MG TABLET PO SCH ×3 (08:54→20:35)
[2020-04-17] MEDS: CYANOCOBALAMIN 500 MCG TABLET PO SCH (08:54)
[2020-04-17] MEDS: HEPARIN 5,000 UNIT/1 ML VIAL SUBCUT SCH ×2 (08:54→16:46)
[2020-04-17] MEDS ORDERED: RIVAROXABAN 10 MG TABLET PO SCH (09:00)
[2020-04-17] MEDS ORDERED: LIDOCAINE PRILOCAINE TOP SCH (11:45)
[2020-04-17] MEDS ORDERED: ALBUTEROL INHALER 18 GM INH PRN (11:55)
[2020-04-17] MEDS ORDERED: AZITHROMYCIN INJ 250 MG in SODIUM CHLORIDE 0.9% 250 ML IV SCH (18:00)
[2020-04-17] MEDS: ATORVASTATIN 40 MG TABLET PO SCH ×2 (20:15→20:36)
[2020-04-17] MEDS: TICAGRELOR 90 MG TABLET PO SCH ×2 (20:15→20:36)
[2020-04-17] MEDS: ACETAMINOPHEN 325 MG TABLET PO PRN (20:15)
[2020-04-17] MEDS: LATANOPROST 0.005% OPH SOLN 2.5 ML BOTTLE BOTH EYES SCH (20:17)
[2020-04-17] MEDS: ACETAMINOPHEN 650 MG SUPP RECTAL PRN (21:20)
[2020-04-18] MEDS: HEPARIN 5,000 UNIT/1 ML VIAL SUBCUT SCH ×3 (01:28→16:34)
[2020-04-18] MEDS: ACETAMINOPHEN 650 MG SUPP RECTAL PRN ×4 (04:15→20:47)
[2020-04-18 05:17] LABS: Basophils % 0.2 % (0.0-0.8); Eosinophils % 0.2 % (0.00-10.9); Hemoglobin 11.4 GM/DL (12.0-16.0); Immature Granulocytes % 0.7 %; Immature Granulocytes Absolute 0.04 #; Lymphocytes # 0.9 10*3/uL (1.4-4.0); Lymphocytes % 14.6 % (21.3-54.2); Mean Corpuscular HGB Conc 31.7 GM/DL (32-36); Mean Corpuscular Volume 87.2 FL (87-102); Mean Platelet Volume 13.4 FL (9.6-12.0); Neutrophils % 77.3 % (38.7-73.9); Red Blood Count 4.13 MC/CUMM (3.8-5.5); Red Cell Distribution Width 15.9 % (9.3-17.3); White Blood Count 5.8 T/CUMM (4-12)
[2020-04-18 05:19] LABS: Platelet Count 103 T/CUMM (130-400)
[2020-04-18 05:53] LABS: Hypochromasia 1+
[2020-04-18 05:54] LABS: Microcytosis Slight; Platelet Estimate Decreased
[2020-04-18 06:12] LABS: Calcium 8.7 MG/DL (8.5-10.1); Osmolality,Calculated 283.2 MOS/KG (273-304)
[2020-04-18] MEDS: INSULIN REGULAR 100 UNIT/ML SUBCUT SCH ×3 (08:27→16:33)
[2020-04-18] MEDS: CALCIUM ACETATE 667 MG CAPSULE PO SCH ×3 (08:27→16:35)
[2020-04-18] MEDS: CYANOCOBALAMIN 500 MCG TABLET PO SCH (08:28)
[2020-04-18] MEDS: LATANOPROST 0.005% OPH SOLN 2.5 ML BOTTLE BOTH EYES SCH ×2 (08:28→20:47)
[2020-04-18] MEDS: GABAPENTIN 300 MG CAPSULE PO SCH (08:28)
[2020-04-18] MEDS: MEMANTINE 10 MG TABLET PO SCH (08:28)
[2020-04-18] MEDS: TICAGRELOR 90 MG TABLET PO SCH (08:28)
[2020-04-18] MEDS: ASPIRIN CHEW 81 MG TABLET PO SCH (08:28)
[2020-04-18] MEDS: PANTOPRAZOLE 40 MG TABLET PO SCH (08:28)
[2020-04-19] MEDS: INSULIN REGULAR 100 UNIT/ML SUBCUT SCH ×5 (00:35→21:32)
[2020-04-19] MEDS: TICAGRELOR 90 MG TABLET PO SCH ×3 (00:35→21:32)
[2020-04-19] MEDS: MEMANTINE 10 MG TABLET PO SCH ×3 (00:36→21:32)
[2020-04-19] MEDS: HEPARIN 5,000 UNIT/1 ML VIAL SUBCUT SCH ×3 (00:36→18:37)
[2020-04-19] MEDS: ATORVASTATIN 40 MG TABLET PO SCH ×2 (00:36→21:34)
[2020-04-19] MEDS: ACETAMINOPHEN 650 MG SUPP RECTAL PRN ×2 (04:32→09:40)
[2020-04-19] MEDS: LATANOPROST 0.005% OPH SOLN 2.5 ML BOTTLE BOTH EYES SCH (09:40)
[2020-04-19] MEDS: CALCIUM ACETATE 667 MG CAPSULE PO SCH ×3 (10:00→17:47)
[2020-04-19] MEDS: ASPIRIN CHEW 81 MG TABLET PO SCH (10:01)
[2020-04-19] MEDS: PANTOPRAZOLE 40 MG TABLET PO SCH (10:02)
[2020-04-19] MEDS: CYANOCOBALAMIN 500 MCG TABLET PO SCH (10:02)
[2020-04-19] MEDS: GABAPENTIN 300 MG CAPSULE PO SCH (10:02)
[2020-04-19] MEDS ORDERED: DEXTROSE 50% 25 GM/50 ML VIAL IV PRN (17:19)
[2020-04-20] MEDS: ACETAMINOPHEN 325 MG TABLET PO PRN (00:11)
[2020-04-20] MEDS: LATANOPROST 0.005% OPH SOLN 2.5 ML BOTTLE BOTH EYES SCH ×3 (00:15→21:41)
[2020-04-20] MEDS: HEPARIN 5,000 UNIT/1 ML VIAL SUBCUT SCH ×2 (01:18→08:55)
[2020-04-20 06:09] LABS: Basophils % 0.3 % (0.0-0.8); Eosinophils % 0.4 % (0.00-10.9); Hematocrit 38.1 VOL% (35.7-47.0); Immature Granulocytes % 1.8 %; Immature Granulocytes Absolute 0.13 #; Lymphocytes # 1.1 10*3/uL (1.4-4.0); Lymphocytes % 15.4 % (21.3-54.2); Mean Corpuscular HGB Conc 31.5 GM/DL (32-36); Mean Corpuscular Volume 86.2 FL (87-102); Mean Platelet Volume 12.5 FL (9.6-12.0); Monocytes % 7.5 % (1.7-12.7); Neutrophils % 74.6 % (38.7-73.9); Platelet Count 144 T/CUMM (130-400); Red Blood Count 4.42 MC/CUMM (3.8-5.5); White Blood Count 7.4 T/CUMM (4-12)
[2020-04-20 06:33] LABS: Calcium 9.2 MG/DL (8.5-10.1); Osmolality,Calculated 294.4 MOS/KG (273-304)
[2020-04-20 07:00] LABS: Ferritin 7846.4 ng/ml (8-252)
[2020-04-20] MEDS: CYANOCOBALAMIN 500 MCG TABLET PO SCH (08:55)
[2020-04-20] MEDS: GABAPENTIN 300 MG CAPSULE PO SCH (08:55)
[2020-04-20] MEDS: CALCIUM ACETATE 667 MG CAPSULE PO SCH ×3 (08:55→16:19)
[2020-04-20] MEDS: INSULIN REGULAR 100 UNIT/ML SUBCUT SCH ×4 (08:55→21:40)
[2020-04-20] MEDS: ASPIRIN CHEW 81 MG TABLET PO SCH (08:55)
[2020-04-20] MEDS: PANTOPRAZOLE 40 MG TABLET PO SCH (08:55)
[2020-04-20] MEDS: MEMANTINE 10 MG TABLET PO SCH ×2 (08:55→21:50)
[2020-04-20] MEDS: TICAGRELOR 90 MG TABLET PO SCH (08:55)
[2020-04-20 17:01] LABS: Hematocrit 39.3 VOL% (35.7-47.0); Hemoglobin 12.3 GM/DL (12.0-16.0)
[2020-04-20] MEDS: ACETAMINOPHEN 650 MG SUPP RECTAL PRN (21:40)
[2020-04-20] MEDS: ATORVASTATIN 40 MG TABLET PO SCH (21:50)
[2020-04-20 22:47] LABS: Hematocrit 38.6 VOL% (35.7-47.0); Hemoglobin 12.1 GM/DL (12.0-16.0)
[2020-04-21 06:13] LABS: Basophils % 0.5 % (0.0-0.8); Eosinophils # 0.2 10*3/uL (0.0-0.87); Eosinophils % 1.7 % (0.00-10.9); Hematocrit 40.4 VOL% (35.7-47.0); Hemoglobin 12.5 GM/DL (12.0-16.0); Immature Granulocytes % 1.4 %; Immature Granulocytes Absolute 0.12 #; Lymphocytes # 1.7 10*3/uL (1.4-4.0); Lymphocytes % 19.2 % (21.3-54.2); Mean Corpuscular HGB Conc 30.9 GM/DL (32-36); Mean Corpuscular Volume 87.1 FL (87-102); Mean Platelet Volume 12.2 FL (9.6-12.0); Monocytes % 8.4 % (1.7-12.7); Neutrophils % 68.8 % (38.7-73.9); Platelet Count 190 T/CUMM (130-400); Red Blood Count 4.64 MC/CUMM (3.8-5.5); Red Cell Distribution Width 15.9 % (9.3-17.3); White Blood Count 8.6 T/CUMM (4-12)
[2020-04-21 06:55] LABS: Ferritin 8243.2 ng/ml (8-252)
[2020-04-21 07:11] LABS: Calcium 9.6 MG/DL (8.5-10.1); Osmolality,Calculated 300.5 MOS/KG (273-304)
[2020-04-21] MEDS: CALCIUM ACETATE 667 MG CAPSULE PO SCH ×3 (09:01→17:26)
[2020-04-21] MEDS: GABAPENTIN 300 MG CAPSULE PO SCH (09:01)
[2020-04-21] MEDS: INSULIN REGULAR 100 UNIT/ML SUBCUT SCH ×4 (09:01→21:48)
[2020-04-21] MEDS: PANTOPRAZOLE 40 MG TABLET PO SCH (09:02)
[2020-04-21] MEDS: LATANOPROST 0.005% OPH SOLN 2.5 ML BOTTLE BOTH EYES SCH ×2 (09:02→21:47)
[2020-04-21] MEDS: ASPIRIN CHEW 81 MG TABLET PO SCH ×2 (09:02→10:16)
[2020-04-21] MEDS: CYANOCOBALAMIN 500 MCG TABLET PO SCH (09:02)
[2020-04-21] MEDS: MEMANTINE 10 MG TABLET PO SCH ×2 (09:02→21:47)
[2020-04-21] MEDS: ATORVASTATIN 40 MG TABLET PO SCH (21:47)
[2020-04-22 05:45] LABS: Basophils # 0.1 10*3/uL (0.0-0.2); Basophils % 0.6 % (0.0-0.8); Eosinophils # 0.3 10*3/uL (0.0-0.87); Eosinophils % 3.5 % (0.00-10.9); Hematocrit 37.3 VOL% (35.7-47.0); Hemoglobin 11.6 GM/DL (12.0-16.0); Immature Granulocytes % 1.3 %; Immature Granulocytes Absolute 0.11 #; Lymphocytes # 1.4 10*3/uL (1.4-4.0); Lymphocytes % 16.9 % (21.3-54.2); Mean Corpuscular HGB Conc 31.1 GM/DL (32-36); Mean Corpuscular Volume 86.5 FL (87-102); Mean Platelet Volume 12.3 FL (9.6-12.0); Neutrophils % 69.7 % (38.7-73.9); Platelet Count 221 T/CUMM (130-400); Red Blood Count 4.31 MC/CUMM (3.8-5.5); Red Cell Distribution Width 15.9 % (9.3-17.3); White Blood Count 8.4 T/CUMM (4-12)
[2020-04-22 06:03] LABS: Calcium 9.7 MG/DL (8.5-10.1); Osmolality,Calculated 311.1 MOS/KG (273-304)
[2020-04-22 06:23] LABS: Ferritin 7419.8 ng/ml (8-252)
[2020-04-22] MEDS: MEMANTINE 10 MG TABLET PO SCH (09:10)
[2020-04-22] MEDS: CALCIUM ACETATE 667 MG CAPSULE PO SCH (09:10)
[2020-04-22] MEDS: CYANOCOBALAMIN 500 MCG TABLET PO SCH (09:10)
[2020-04-22] MEDS: GABAPENTIN 300 MG CAPSULE PO SCH (09:11)
[2020-04-22] MEDS: ASPIRIN CHEW 81 MG TABLET PO SCH (09:11)
[2020-04-22] MEDS: PANTOPRAZOLE 40 MG TABLET PO SCH (09:11)
[2020-04-22] MEDS: LATANOPROST 0.005% OPH SOLN 2.5 ML BOTTLE BOTH EYES SCH (09:12)
[2020-04-22] MEDS: INSULIN REGULAR 100 UNIT/ML SUBCUT SCH (09:12)
[2020-04-22] MEDS ORDERED: LORazepam 2 MG/1 ML VIAL IV PRN (09:41)
[2020-04-22] MEDS ORDERED: MORPHINE 4 MG/1 ML VIAL IV PRN (09:41)
[2020-04-22] MEDS ORDERED: fentaNYL 25 MCG/HR PATCH TRANSDERM SCH (12:00)
[2020-04-22] MEDS: ACETAMINOPHEN 650 MG SUPP RECTAL PRN (21:06)
[2020-04-23] MEDS: DEXTROSE 5% NACL 0.45% 1,000 ML IV SCH (12:59)
[2020-04-23] MEDS: INSULIN REGULAR 100 UNIT/ML SUBCUT SCH (20:50)
[2020-04-24 05:15] LABS: Basophils # 0.1 10*3/uL (0.0-0.2); Basophils % 0.6 % (0.0-0.8); Eosinophils # 0.2 10*3/uL (0.0-0.87); Eosinophils % 2.1 % (0.00-10.9); Hematocrit 37.2 VOL% (35.7-47.0); Hemoglobin 11.5 GM/DL (12.0-16.0); Immature Granulocytes % 2.3 %; Immature Granulocytes Absolute 0.23 #; Lymphocytes # 1.6 10*3/uL (1.4-4.0); Lymphocytes % 15.3 % (21.3-54.2); Mean Corpuscular HGB Conc 30.9 GM/DL (32-36); Mean Corpuscular Volume 86.1 FL (87-102); Monocytes % 9.9 % (1.7-12.7); NRBC # 0.06 10*3/uL; Neutrophils % 69.8 % (38.7-73.9); Platelet Count 264 T/CUMM (130-400); Red Blood Count 4.32 MC/CUMM (3.8-5.5); White Blood Count 10.1 T/CUMM (4-12)
[2020-04-24 06:06] LABS: Calcium 9.3 MG/DL (8.5-10.1); Ferritin 12198.8 ng/ml (8-252)
[2020-04-24] MEDS: INSULIN REGULAR 100 UNIT/ML SUBCUT SCH ×4 (08:49→20:37)
[2020-04-25 03:27] LABS: Basophils # 0.1 10*3/uL (0.0-0.2); Basophils % 0.4 % (0.0-0.8); Eosinophils # 0.1 10*3/uL (0.0-0.87); Eosinophils % 0.8 % (0.00-10.9); Hematocrit 38.1 VOL% (35.7-47.0); Hemoglobin 11.9 GM/DL (12.0-16.0); Immature Granulocytes % 1.9 %; Immature Granulocytes Absolute 0.32 #; Lymphocytes # 2.1 10*3/uL (1.4-4.0); Lymphocytes % 12.5 % (21.3-54.2); Mean Corpuscular HGB Conc 31.2 GM/DL (32-36); Mean Corpuscular Volume 86.6 FL (87-102); Mean Platelet Volume 11.8 FL (9.6-12.0); Monocytes % 8.6 % (1.7-12.7); NRBC # 0.08 10*3/uL; Neutrophils % 75.8 % (38.7-73.9); Platelet Count 279 T/CUMM (130-400); Red Cell Distribution Width 15.9 % (9.3-17.3); White Blood Count 17.2 T/CUMM (4-12)
[2020-04-25 03:57] LABS: Calcium 9.8 MG/DL (8.5-10.1); Ferritin 9791.4 ng/ml (8-252); Osmolality,Calculated 297.7 MOS/KG (273-304)
[2020-04-25] MEDS: DEXTROSE 5% NACL 0.45% 1,000 ML IV SCH (04:46)
[2020-04-25] MEDS ORDERED: ceFAZolin 1,000 MG in SYRINGE 1 EACH IV ONE (07:00)
[2020-04-25 07:53] LABS: SARS-CoV-2 Total Ab Interp Reactive
[2020-04-25] MEDS ORDERED: PANTOPRAZOLE 40 MG VIAL IV SCH (09:00)
[2020-04-25] MEDS: INSULIN REGULAR 100 UNIT/ML SUBCUT SCH ×4 (09:02→21:17)
[2020-04-25] MEDS ORDERED: ETOMIDATE 40 MG/20 ML VIAL IV ONE (12:36)
[2020-04-25] MEDS ORDERED: PHENYLEPHRINE 1 MG/10 ML SYRINGE IV ONE (12:36)
[2020-04-25] MEDS ORDERED: DEXMEDETOMIDINE 200 MCG/2 ML VIAL ONE (12:36)
[2020-04-25] MEDS ORDERED: LIDOCAINE 2% 5 ML VIAL ONE (12:36)
[2020-04-26 04:59] LABS: Basophils # 0.1 10*3/uL (0.0-0.2); Basophils % 0.4 % (0.0-0.8); Eosinophils # 0.1 10*3/uL (0.0-0.87); Eosinophils % 0.7 % (0.00-10.9); Hematocrit 35.5 VOL% (35.7-47.0); Hemoglobin 10.7 GM/DL (12.0-16.0); Immature Granulocytes % 1.9 %; Immature Granulocytes Absolute 0.35 #; Lymphocytes # 2.4 10*3/uL (1.4-4.0); Lymphocytes % 12.6 % (21.3-54.2); Mean Corpuscular HGB Conc 30.1 GM/DL (32-36); Mean Corpuscular Volume 90.6 FL (87-102); Mean Platelet Volume 11.1 FL (9.6-12.0); Monocytes % 7.1 % (1.7-12.7); NRBC # 0.08 10*3/uL; Neutrophils % 77.3 % (38.7-73.9); Platelet Count 254 T/CUMM (130-400); Red Blood Count 3.92 MC/CUMM (3.8-5.5); Red Cell Distribution Width 16.6 % (9.3-17.3); White Blood Count 18.7 T/CUMM (4-12)
[2020-04-26 05:20] LABS: Calcium 9.2 MG/DL (8.5-10.1); Osmolality,Calculated 306.7 MOS/KG (273-304)
[2020-04-26 05:38] LABS: Ferritin 6619.3 ng/ml (8-252)
[2020-04-26] MEDS: INSULIN REGULAR 100 UNIT/ML SUBCUT SCH ×4 (09:00→20:04)
[2020-04-26] MEDS: OMEPRAZOLE ODT 20 MG TABLET PER TUBE SCH ×2 (09:27→20:01)
[2020-04-26] MEDS: DEXTROSE 5% NACL 0.45% 1,000 ML IV SCH (13:19)
[2020-04-27 06:47] LABS: Basophils # 0.1 10*3/uL (0.0-0.2); Basophils % 0.4 % (0.0-0.8); Eosinophils # 0.1 10*3/uL (0.0-0.87); Eosinophils % 0.4 % (0.00-10.9); Hematocrit 32.7 VOL% (35.7-47.0); Hemoglobin 10.3 GM/DL (12.0-16.0); Immature Granulocytes % 2.2 %; Immature Granulocytes Absolute 0.38 #; Lymphocytes # 1.9 10*3/uL (1.4-4.0); Lymphocytes % 11.5 % (21.3-54.2); Mean Corpuscular HGB Conc 31.5 GM/DL (32-36); Mean Corpuscular Volume 85.8 FL (87-102); Mean Platelet Volume 11.9 FL (9.6-12.0); Monocytes % 7.8 % (1.7-12.7); NRBC # 0.04 10*3/uL; Neutrophils % 77.7 % (38.7-73.9); Platelet Count 204 T/CUMM (130-400); Red Blood Count 3.81 MC/CUMM (3.8-5.5); Red Cell Distribution Width 16.6 % (9.3-17.3); White Blood Count 16.9 T/CUMM (4-12)
[2020-04-27 07:42] LABS: Ferritin 4485.2 ng/ml (8-252); Osmolality,Calculated 294.2 MOS/KG (273-304)
[2020-04-27] MEDS: INSULIN REGULAR 100 UNIT/ML SUBCUT SCH ×4 (08:31→20:44)
[2020-04-27] MEDS: OMEPRAZOLE ODT 20 MG TABLET PER TUBE SCH ×2 (08:31→20:44)
[2020-04-27] MEDS: INSULIN GLARGINE 100 UNIT/ML SUBCUT SCH (20:45)
[2020-04-28 07:27] LABS: Basophils # 0.1 10*3/uL (0.0-0.2); Basophils % 0.3 % (0.0-0.8); Eosinophils # 0.1 10*3/uL (0.0-0.87); Eosinophils % 0.3 % (0.00-10.9); Hematocrit 31.7 VOL% (35.7-47.0); Immature Granulocytes % 2.2 %; Immature Granulocytes Absolute 0.38 #; Lymphocytes # 2.5 10*3/uL (1.4-4.0); Lymphocytes % 14.3 % (21.3-54.2); Mean Corpuscular HGB Conc 31.5 GM/DL (32-36); Mean Corpuscular Volume 87.3 FL (87-102); Mean Platelet Volume 11.3 FL (9.6-12.0); Monocytes % 8.1 % (1.7-12.7); NRBC # 0.04 10*3/uL; Neutrophils % 74.8 % (38.7-73.9); Platelet Count 203 T/CUMM (130-400); Red Blood Count 3.63 MC/CUMM (3.8-5.5); Red Cell Distribution Width 16.2 % (9.3-17.3); White Blood Count 17.4 T/CUMM (4-12)
[2020-04-28 08:10] LABS: Calcium 9.2 MG/DL (8.5-10.1); Ferritin 3442.5 ng/ml (8-252); Osmolality,Calculated 301.1 MOS/KG (273-304)
[2020-04-28] MEDS: INSULIN REGULAR 100 UNIT/ML SUBCUT SCH ×4 (08:53→21:10)
[2020-04-28] MEDS: OMEPRAZOLE ODT 20 MG TABLET PER TUBE SCH ×2 (08:54→21:10)
[2020-04-28] MEDS: INSULIN GLARGINE 100 UNIT/ML SUBCUT SCH (21:10)
[2020-04-29] MEDS: ACETAMINOPHEN 650 MG SUPP RECTAL PRN (00:40)
[2020-04-29 07:51] LABS: Basophils # 0.1 10*3/uL (0.0-0.2); Basophils % 0.4 % (0.0-0.8); Eosinophils # 0.1 10*3/uL (0.0-0.87); Eosinophils % 0.4 % (0.00-10.9); Hematocrit 33.2 VOL% (35.7-47.0); Immature Granulocytes % 2.3 %; Immature Granulocytes Absolute 0.37 #; Lymphocytes # 2.6 10*3/uL (1.4-4.0); Lymphocytes % 16.2 % (21.3-54.2); Mean Corpuscular HGB Conc 30.1 GM/DL (32-36); Mean Platelet Volume 11.9 FL (9.6-12.0); Monocytes % 9.4 % (1.7-12.7); NRBC # 0.03 10*3/uL; Neutrophils % 71.3 % (38.7-73.9); Platelet Count 205 T/CUMM (130-400); Red Blood Count 3.65 MC/CUMM (3.8-5.5); Red Cell Distribution Width 17.2 % (9.3-17.3); White Blood Count 16.2 T/CUMM (4-12)
[2020-04-29 07:55] LABS: Calcium 9.1 MG/DL (8.5-10.1); Osmolality,Calculated 300.4 MOS/KG (273-304)
[2020-04-29 08:03] LABS: Ferritin 3978.6 ng/ml (8-252)
[2020-04-29] MEDS: INSULIN REGULAR 100 UNIT/ML SUBCUT SCH ×4 (09:35→20:51)
[2020-04-29] MEDS: OMEPRAZOLE ODT 20 MG TABLET PER TUBE SCH ×2 (09:35→20:50)
[2020-04-29 09:39] LABS: Hypochromasia 1+; Microcytosis 1+
[2020-04-29 09:40] LABS: Platelet Estimate Normal; Polychromasia Slight
[2020-04-29] MEDS: INSULIN GLARGINE 100 UNIT/ML SUBCUT SCH (20:50)
[2020-04-30] MEDS: INSULIN REGULAR 100 UNIT/ML SUBCUT SCH ×4 (08:06→20:28)
[2020-04-30] MEDS: OMEPRAZOLE ODT 20 MG TABLET PER TUBE SCH ×2 (08:07→20:29)
[2020-04-30] MEDS: INSULIN GLARGINE 100 UNIT/ML SUBCUT SCH (20:29)
[2020-05-01 05:16] LABS: Basophils # 0.1 10*3/uL (0.0-0.2); Basophils % 0.4 % (0.0-0.8); Eosinophils % 0.1 % (0.00-10.9); Hematocrit 33.5 VOL% (35.7-47.0); Hemoglobin 10.2 GM/DL (12.0-16.0); Immature Granulocytes Absolute 0.28 #; Lymphocytes # 2.2 10*3/uL (1.4-4.0); Lymphocytes % 15.8 % (21.3-54.2); Mean Corpuscular HGB Conc 30.4 GM/DL (32-36); Mean Corpuscular Volume 88.4 FL (87-102); Mean Platelet Volume 11.7 FL (9.6-12.0); Monocytes % 11.1 % (1.7-12.7); Neutrophils % 70.6 % (38.7-73.9); Platelet Count 188 T/CUMM (130-400); Red Blood Count 3.79 MC/CUMM (3.8-5.5); Red Cell Distribution Width 17.1 % (9.3-17.3); White Blood Count 14.2 T/CUMM (4-12)
[2020-05-01 05:40] LABS: Calcium 9.5 MG/DL (8.5-10.1); Osmolality,Calculated 302.2 MOS/KG (273-304)
[2020-05-01] MEDS: INSULIN REGULAR 100 UNIT/ML SUBCUT SCH ×4 (08:11→21:53)
[2020-05-01] MEDS: OMEPRAZOLE ODT 20 MG TABLET PER TUBE SCH ×2 (08:12→21:53)
[2020-05-01] MEDS: INSULIN GLARGINE 100 UNIT/ML SUBCUT SCH (21:53)
[2020-05-02] MEDS ORDERED: ZINC OXIDE PASTE 113 GM TUBE TOP PRN (04:16)
[2020-05-02] MEDS: INSULIN REGULAR 100 UNIT/ML SUBCUT SCH ×2 (09:25→12:28)
[2020-05-02] MEDS: OMEPRAZOLE ODT 20 MG TABLET PER TUBE SCH (09:26)
[2020-05-02 16:23] VITALS: BP 168/52
== END 2020-05-02 17:03 | DRG 177 ==
LOC: N.ED 17:40 → SUATTDRO 19:41 → N.EDINP 19:41 → N.2E 21:27
PROVIDERS: ADMIT Internal Medicine; ATTEND Emergency Medicine
PROC: EGDWPEG (ICD-10-PCS; 2020-04-25 07:35)

== ENCOUNTER 2020-05-08 12:16 | Observation (INO) ==
[2020-05-08 13:48] LABS: Basophils % 0.2 % (0.0-0.8); Hematocrit 38.2 VOL% (35.7-47.0); Hemoglobin 11.8 GM/DL (12.0-16.0); Immature Granulocytes % 1.1 %; Immature Granulocytes Absolute 0.24 #; Lymphocytes # 1.8 10*3/uL (1.4-4.0); Lymphocytes % 8.4 % (21.3-54.2); Mean Corpuscular HGB Conc 30.9 GM/DL (32-36); Mean Platelet Volume 10.7 FL (9.6-12.0); Monocytes % 9.5 % (1.7-12.7); Neutrophils % 80.8 % (38.7-73.9); Platelet Count 302 T/CUMM (130-400); Red Blood Count 4.29 MC/CUMM (3.8-5.5); Red Cell Distribution Width 17.8 % (9.3-17.3); White Blood Count 21.2 T/CUMM (4-12)
[2020-05-08 14:09] LABS: Albumin 2.2 G/DL (3.4-5.0); Bilirubin,Total 0.6 MG/DL (0.2-1.0); Total Protein 6.8 G/DL (6.4-8.3)
[2020-05-08] MEDS ORDERED: cefTRIAXone 1,000 MG in SODIUM CHLORIDE 0.9% 100 ML IV STA (14:25)
[2020-05-08] MEDS ORDERED: DEXTROSE 50% 25 GM/50 ML VIAL IV PRN (14:46)
[2020-05-08] MEDS ORDERED: ONDANSETRON 4 MG/2 ML VIAL IV PRN (14:46)
[2020-05-08] MEDS ORDERED: GLUCAGON 1 MG VIAL IM PRN (14:46)
[2020-05-08 14:52] LABS: Lymphocytes 6 % (20-55); Macrocytosis 1+; Platelet Estimate Adequate; Polychromasia 1+; Segmented Neutrophils 86 % (50-85); Total Cells Counted 100
[2020-05-08 17:49] LABS: Hepatitis B Core IgM Quant 0.15 Index; Hepatitis B Surface Ag Result Negative (Negative); Hepatitis C Virus Ab Quant 0.11 Index; Hepatitis C Virus Ab Result Negative (Negative)
[2020-05-08 21:32] VITALS: BP 88/68
[2020-05-09] MEDS ORDERED: cefTRIAXone 1,000 MG in SYRINGE 1 EACH IV SCH (17:00)
[2020-05-09] MEDS ORDERED: AZITHROMYCIN INJ 500 MG in SODIUM CHLORIDE 0.9% 250 ML IV SCH (22:00)
== END 2020-05-08 22:46 | disposition expired ==
LOC: EDUNIT# → EDBD → N.EDINP 12:16 → N.ED 12:16 → N.3E 16:41 → N.2E 17:39
PROVIDERS: ADMIT Hospitalist; ATTEND Hospitalist